=== PATIENT | female | born 1955 | race Caucasian/White ===

== ENCOUNTER → 2017-01-30 | Outpatient (CLI) | payer BC ==
[~2017-01-30] MED LIST: AMPH10TA2 PO; B-COCAP2 PO; CALC-478 PO; CELE100C PO; CITA20TA9 PO; FSMD/70 PO; GABA-1218 PO; GABA1CAP4 PO; GLUC10007 PO; HYDR-3419 PO; META1TAB22 PO; MULTTAB58 PO; NRN/300 PO; PREDPOW63 PO; PROB1TAB16 PO; TRAM-10 PO
--- NOTE | 2017-01-30 15:14 | DIAGNOSTIC IMAGING REPORT ---
CHEST 2 VIEWS ROUTINE CLINICAL HISTORY: Cough. Pneumonia. COMPARISON STUDY: Chest radiograph 11/18/2014. FINDINGS: Note is made of moderate to severe S-shaped scoliosis of the thoracolumbar spine. There is no pneumothorax or pleural effusion. There is no evidence of pulmonary edema. Nipple shadow projects of the right lower lung. There is a calcified left upper lobe nodule. This is unchanged. Cardiomediastinal silhouette is normal. Pulmonary vascularity is normal. IMPRESSION: No acute cardiopulmonary findings. Electronically signed by: Darius Witt M.D. 01/30/2017 3:13 PM Dictated Date/Time: 01/30/2017 3:12 PM
== END | disposition home or self-care (01) ==
LOC: C.RAD1850 14:45
PROVIDERS: ATTEND Family Medicine
DX: J18.9 Pneumonia, unspecified organism (principal)

== ENCOUNTER → 2017-02-23 | Outpatient (CLI) | payer BC ==
[~2017-02-23] MED LIST changes: -GABA-1218 PO; +GABA300C19 PO
== END | disposition home or self-care (01) ==
LOC: C.MAMM 10:08
PROVIDERS: ATTEND Internal Medicine Rheumatology
DX: M81.0 Age-related osteoporosis without current pathological fracture (principal); M85.88 Other specified disorders of bone density and structure, other site; M85.832 Other specified disorders of bone density and structure, left forearm; M85.851 Other specified disorders of bone density and structure, right thigh; M85.852 Other specified disorders of bone density and structure, left thigh

== ENCOUNTER → 2017-06-21 | Outpatient (CLI) | payer BC ==
[2017-06-21 12:10] LABS: BASO % 1.1 %; BASO ABS # 0.04 K/uL (0-0.2); COMPLETE YES; HEMATOCRIT 37.5 % (37-47); LYMPH % 38.6 %; MEAN CELL VOLUME 89.3 fL (80-100); MEAN CORPUSCULAR HEMOGLOBIN 29.3 pg (25-34); MEAN CORPUSCULAR HGB CONC 32.8 g/dl (32-36); MEAN PLATELET VOLUME 8.6 fL (7.4-10.4); MONO % 8.3 %; PLATELET COUNT 264 K/uL (130-400); WHITE BLOOD COUNT 3.63 K/uL (4.8-10.8)
[2017-06-21 13:18] LABS: BLOOD UREA NITROGEN 15 mg/dl (7-18); BUN/CREATININE RATIO 21.7 (10-20); CHLORIDE 106 mmol/L (98-107); CREATININE 0.67 mg/dl (0.60-1.20); GLUCOSE 85 mg/dl (70-99); POTASSIUM 4.2 mmol/L (3.5-5.1); SODIUM 140 mmol/L (136-145)
[2017-06-21 13:19] LABS: ALT/SGPT 23 U/L (12-78); CALCIUM 9.3 mg/dl (8.5-10.1); CARBON DIOXIDE 28 mmol/L (21-32)
[2017-06-21 13:31] LABS: ALB/GLOB RATIO 1.2 (0.9-2); ALKALINE PHOSPHATASE 66 U/L (45-117); AST/SGOT 20 U/L (15-37); IMMUNOGLOBULN A 98.5 mg/dL (70-400); IMMUNOGLOBULN M 85.5 mg/dL (40-230)
== END | disposition home or self-care (01) ==
LOC: C.LAB1850 10:43
PROVIDERS: ATTEND Internal Medicine Pulmonary Disease
DX: R91.1 Solitary pulmonary nodule (principal)

== ENCOUNTER → 2017-11-29 | Outpatient (CLI) | payer BC ==
[~2017-11-29] MED LIST changes: +GABA-1218 PO; +GABA-1219 PO; -GABA1CAP4 PO; -GABA300C19 PO
--- NOTE | 2017-11-30 14:41 | MAMMOGRAPHY REPORT ---
BILATERAL DIGITAL SCREENING MAMMOGRAM TOMOSYNTHESIS WITH CAD: 11/29/2017 CLINICAL HISTORY: Routine screening. TECHNIQUE: Breast tomosynthesis in addition to standard 2D mammography was performed. Current study was also evaluated with a Computer Aided Detection (CAD) system. COMPARISON: Comparison is made to exams dated: 08/17/2016 mammogram, 08/14/2015 mammogram, 4 mammogram, 08/08/2013 mammogram, 08/02/2012 mammogram, and 08/01/2011 mammogram - [facility]. BREAST COMPOSITION: The tissue of both breasts is heterogeneously dense, which may obscure small mas ses. FINDINGS: A linear scar marker overlies the lateral left breast. No suspicious mass, architectural d istortion or cluster of microcalcifications is seen. IMPRESSION: ACR BI-RADS CATEGORY 1: NEGATIVE There is no mammographic evidence of malignancy. A 1 year screening mammogram is recommended. The pa tient will receive written notification of the results. Approximately 10% of breast cancers are not detected with mammography. A negative mammographic report should not delay biopsy if a clinically suggestive mass is present. Dulce Acevedo M.D. ay/:11/29/2017 17:11:29 Roller Print Tender: Saroj LEON(Saumya)(Zahida), [facility] letter sent: Normal 1/2 BI-RADS Code: ACR BI-RADS Category 1: Negative
== END | disposition home or self-care (01) ==
LOC: C.MAMM 16:33
PROVIDERS: ATTEND Physician Assistant
DX: Z12.31 Encounter for screening mammogram for malignant neoplasm of breast (principal)

== ENCOUNTER 2020-03-22 14:29 | Observation (INO) ==
--- NOTE | 2020-03-22 14:53 | Emergency Department Note ---
History of Present Illness General Chief complaint: Cardiac Assessment Time Seen by Provider: 03/22/20 14:33 Source: patient Mode of arrival: EMS Limitations: no limitations History of Present Illness Provider complaint: Chest pain Onset (ago): hour(s) Location: chest Radiation: neck Severity: moderate Pain Consistency: + now resolved Quality: + other (Heaviness) Relieved By: + none Associated symptoms: + cough (Dry cough), + diaphoresis and + shortness of breath; no fever/chills and no nausea/vomiting This is a 64-year-old female presents with chest discomfort starting at approximately 1:30 PM today. The patient was not doing anything in particular other than trying to get ready to take her dogs out. She then developed some cramping pain in her upper abdomen. She sat down and developed chest heaviness across her entire chest rating into her neck. She was diaphoretic and short of breath. Her symptoms lasted about 10 to 20 minutes. They resolve spontaneously. When EMS arrived she did not have any symptoms. She was given 324 mg of aspirin p.o. She denies any recent fever, known exposure to COVID-19, vomiting, diarrhea or body aches. She does state that she had a very slight dry cough earlier today. She does have a COVID 19 test pending from but this was only because she is having hip surgery and not because she had symptoms. Home Medications Home Medications Medication Instructions Recorded Confirmed Type alendronate 70 mg PO WK 12/18/18 03/22/20 History cholecalciferol (vitamin D3) 1,000 unit PO DAILY 12/18/18 03/22/20 History [Vitamin D3] dextroamphetamine-amphetamine 10 mg PO TID 12/18/18 03/22/20 History [Adderall] gabapentin 900 mg PO TID 12/18/18 03/22/20 History hydrocodone-acetaminophen 1 - 2 tab PO BID PRN 12/18/18 03/22/20 History lorazepam 1 mg PO DAILY PRN 12/18/18 03/22/20 History magnesium oxide 400 mg PO DIRECTED 12/18/18 03/22/20 History metaxalone 800 mg PO BID PRN 12/18/18 03/22/20 History multivitamin [Multiple Vitamins] 1 tab PO DAILY 12/18/18 03/22/20 History vitamin B complex 1 cap PO DAILY 12/18/18 03/22/20 History zinc sulfate [Zinc-15] 66 mg PO DIRECTED 12/18/18 03/22/20 History budesonide 3 mg 6 mg PO QAM 07/19/19 03/22/20 History capsule,delayed,extended release diphenoxylate-atropine 2.5 1 tab PO BID PRN 07/19/19 03/22/20 History mg-0.025 mg tablet celecoxib [Celebrex] 100 mg PO DIRECTED 02/26/20 03/22/20 History duloxetine [Cymbalta] 60 mg PO QAM 02/26/20 03/22/20 History meclizine 25 mg PO TID PRN 03/22/20 03/22/20 History Allergies Allergy/AdvReac Type Severity Reaction Status Date / Time baclofen Allergy Unknown Hypotension Verified 03/22/20 16:06 titanium AdvReac Unknown "AUTO Verified 03/22/20 16:06 IMMUNE" REACTION , LICHEN PLANUS Past Med/Surg History Medical History ADHD Hay fever EXPERIENCES CHANGE OF TASTE DUE MEDICATIONS (CHRONIC ISSUE/STABLE) History of melanoma AND HX SQUAMOUS CELL - REMOVED , HX MOHS/FOLLOWS DERM RECOMMENDED 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 Lichen planus TO LOWER EXTREMITIES- CHRONIC Lung cyst CALCIFIED LUNG CYST, LEFT LUNG - CHRONIC - NO CHANGES Lymphocytic colitis Scoliosis SIGNIFICANT Spinal stenosis Vestibular schwannoma S/P GAMMA KNIFE SURGERY 2019- BELIEVES IMPROVING Surgical History History of section History of colonoscopy History of gynecologic surgery ECTOPIC History of left breast biopsy History of neck surgery MILD LIMITATIONS SIDE TO SIDE MOVEMENT MILD LIMITATION WHEN LOOKING DOWN History of oral surgery SEVERAL TEETH REMOVED, ROOT CANAL WITH ANESTHESIA History of surgery GAMMA KNIFE [place] teeth removed Family History Mother Family history of CREST syndrome Father Family history of diabetes mellitus (DM) Son Family history of diabetes mellitus (DM) Social History Smoking Status: Former smoker Smoking End Date: 1989; Second Hand Exposure: No; Tobacco Cessation Education Requested by Patient: No Hx Alcohol Use: Yes Alcohol type: wine and hard liquor Hx Substance Use: No Preferred Language: Faroese Communication Ability: Effective Senior Application Programmer Required: No Beliefs That Will Affect Care: None Current Living Situation: Alone Current Living Situation Comment: son intermittently current occupational status: employed Other Information That Helps Us Care for You: No Feels Safe at Home: Yes Safety Concerns: Feels Safe At This Time Review of Systems See HPI for pertinent positives & negatives. and A total of 10 systems reviewed and were otherwise negative Physical Exam Vital Signs Vital Signs - 24 hr 03/22/20 14:52 03/22/20 15:41 03/22/20 16:00 Temperature 36.6 C Temperature Source Oral Pulse Rate 72 69 Pulse Rate [Apical] 72 Pulse Rate from SpO2 Sensor 70 Respiratory Rate 18 18 16 Blood Pressure 180/91 H 147/115 H Blood Pressure [Right Arm] 142/109 H Blood Pressure Mean 120 127 Blood Pressure Mean [Right Arm] 120 Pulse Oximetry 97 98 96 Oxygen Delivery Method Room Air Room Air Sepsis Recent Fever Within 48 Hours No Sepsis New/Unexplained Change in Mental Status No Sepsis Action Taken by Nursing No Action Required 03/22/20 16:27 03/22/20 16:31 03/22/20 17:00 Temperature Temperature Source Pulse Rate 66 64 73 Pulse Rate [Apical] Pulse Rate from SpO2 Sensor 65 65 73 Respiratory Rate 11 L 11 L 14 Blood Pressure 147/115 H 170/111 H 182/106 H Blood Pressure [Right Arm] Blood Pressure Mean 127 138 119 Blood Pressure Mean [Right Arm] Pulse Oximetry 96 96 97 Oxygen Delivery Method Sepsis Recent Fever Within 48 Hours Sepsis New/Unexplained Change in Mental Status Sepsis Action Taken by Nursing Constitutional: Vital signs reviewed. Eyes: Pupils are equal round reactive to light. Conjunctiva are noninjected. ENT: Pharynx is clear without erythema or exudate. Mucous membranes are moist. Neck supple without meningeal signs. Respiratory: Clear to auscultation bilaterally. Breath sounds are equal bilaterally. Cardiovascular: Regular rate and rhythm. No rubs or gallops. GI: Soft, nondistended and nontender. Bowel sounds are present. Musculoskeletal: No peripheral edema. No lower extremity tenderness. Integumentary: No cyanosis. or jaundice. Neurological: The patient is awake and alert. No focal deficits. Psychiatric: Normal affect. Not anxious appearing. Medical Decision Making Differential Diagnosis Unstable angina, [place], GERD, cholelithiasis, pancreatitis Medical Records Attestation: I reviewed the patient's medical records. I did perform a limited focused review of portions of the patient's old chart on the electronic medical record. The patient has had no recent pertinent visits to this hospital. She did see orthopedics for preop assessment. Home Medications Current Medication List: was personally reviewed by me Laboratory Data Attestation: I reviewed the patient's lab results. Result diagrams: 03/22/20 14:50 03/22/20 14:50 Lab Results 03/22/20 03/22/20 03/22/20 Range/Units 14:50 14:50 14:50 WBC 5.89 (4.8-10.8) K/uL RBC 4.37 (4.2-5.4) M/uL Hgb 13.2 (12.0-16.0) g/dL Hct 39.8 (37-47) % MCV 91.1 (80-100) fL MCH 30.2 (25-34) pg MCHC 33.2 (32-36) g/dL RDW Std Deviation 44.7 (36.4-46.3) fL RDW Coeff of Karena 13.4 (11.5-14.5) % Plt Count 304 (130-400) K/uL MPV 8.3 (7.4-10.4) fL Immature Gran % (Auto) 0.2 % Neut % (Auto) 58.7 % Lymph % (Auto) 26.8 % [place] % (Auto) 11.4 % Eos % (Auto) 2.2 % Baso % (Auto) 0.7 % Neut # (Auto) 3.46 (1.4-6.5) K/uL Lymph # (Auto) 1.58 (1.2-3.4) K/uL [place] # (Auto) 0.67 H (0.11-0.59) K/uL Eos # (Auto) 0.13 (0-0.5) K/uL Baso # (Auto) 0.04 (0-0.2) K/uL Immature Gran # (Auto) 0.01 (0.00-0.02) K/uL ESR (0-21) mm/hr PT 10.8 (9.0-12.0) Seconds INR 1.0 (0.9-1.1) APTT 29.3 (21.0-31.0) Seconds PTT Ratio 1.1 Sodium 140 (136-145) mmol/L Potassium 3.7 (3.5-5.1) mmol/L Chloride 104 (98-107) mmol/L Carbon Dioxide 28 (21-32) mmol/L Anion Gap 8.0 (3-11) BUN 16 (7-18) mg/dl Creatinine 0.69 (0.6-1.2) mg/dl Est Cr Clr Drug Dosing 80.7 ml/min Est GFR ( Amer) 107.4 Est GFR (Non-Af Amer) 92.6 BUN/Creatinine Ratio 22.6 H (10-20) Glucose 93 (70-99) mg/dl Calcium 8.9 (8.5-10.1) mg/dl Total Bilirubin 0.6 (0.2-1) mg/dl AST 25 (15-37) U/L ALT 28 (12-78) U/L Alkaline Phosphatase 85 (45-117) U/L Troponin I < 0.015 (0-0.045) ng/ml Total Protein 7.6 (6.4-8.2) gm/dl Albumin 3.9 (3.4-5.0) gm/dl Globulin 3.7 (2.5-4.0) gm/dl Albumin/Globulin Ratio 1.1 (0.9-2) Lipase 152 (73-393) U/L Specimen Hemolysis 03/22/20 Range/Units 14:50 WBC (4.8-10.8) K/uL RBC (4.2-5.4) M/uL Hgb (12.0-16.0) g/dL Hct (37-47) % MCV (80-100) fL MCH (25-34) pg MCHC (32-36) g/dL RDW Std Deviation (36.4-46.3) fL RDW Coeff of Karena (11.5-14.5) % Plt Count (130-400) K/uL MPV (7.4-10.4) fL Immature Gran % (Auto) % Neut % (Auto) % Lymph % (Auto) % [place] % (Auto) % Eos % (Auto) % Baso % (Auto) % Neut # (Auto) (1.4-6.5) K/uL Lymph # (Auto) (1.2-3.4) K/uL [place] # (Auto) (0.11-0.59) K/uL Eos # (Auto) (0-0.5) K/uL Baso # (Auto) (0-0.2) K/uL Immature Gran # (Auto) (0.00-0.02) K/uL ESR 10 (0-21) mm/hr PT (9.0-12.0) Seconds INR (0.9-1.1) APTT (21.0-31.0) Seconds PTT Ratio Sodium (136-145) mmol/L Potassium (3.5-5.1) mmol/L Chloride (98-107) mmol/L Carbon Dioxide (21-32) mmol/L Anion Gap (3-11) BUN (7-18) mg/dl Creatinine (0.6-1.2) mg/dl Est Cr Clr Drug Dosing ml/min Est GFR ( Amer) Est GFR (Non-Af Amer) BUN/Creatinine Ratio (10-20) Glucose (70-99) mg/dl Calcium (8.5-10.1) mg/dl Total Bilirubin (0.2-1) mg/dl AST (15-37) U/L ALT (12-78) U/L Alkaline Phosphatase (45-117) U/L Troponin I (0-0.045) ng/ml Total Protein (6.4-8.2) gm/dl Albumin (3.4-5.0) gm/dl Globulin (2.5-4.0) gm/dl Albumin/Globulin Ratio (0.9-2) Lipase (73-393) U/L Specimen Hemolysis Imaging Data Radiologist's Impression: SINGLE VIEW CHEST CLINICAL HISTORY: Atypical chest pain. FINDINGS: An AP, portable, upright chest radiograph is compared to study dated 03/04/2020. The cardiomediastinal silhouette is unremarkable. A calcified granuloma seen in the left upper lobe. The lungs and pleural spaces are otherwise clear. No pneumothorax is seen. The skeletal structures are osteopenic. The bony thorax is grossly intact. Fusion hardware is noted in the lower cervical spine. Degenerative change and moderate scoliosis is seen in the thoracic spine. IMPRESSION: No active disease in the chest. ACT 112: Negative or not required by law. Electronically signed by: Rogers Paul M.D. 03/22/2020 3:16 PM Dictated: 03/22/20 1515 Transcribed: 03/22/20 1515 ECG Data Attestation: I personally reviewed and interpreted this ECG as follows: Indication: + chest pain Rate (beats per minute): 78 Rhythm: + normal sinus ECG Intervals/blocks: + Normal QRS ECG ST segments: no ST elevation ECG Findings: + LVH; no PVCs Blood Pressure Blood Pressure Findings: Elevated blood pressure Blood Pressure Disposition: further management by hospitalist MDM Narrative I did evaluate the patient as noted above. IV access was established. I did place an order for continuous cardiac monitoring. The monitor showed normal sinus rhythm with a rate of 76. I did order and personally review the patient's 12-lead EKG as described above. She has no acute ischemic changes. I did order and personally reviewed the images of the patient's chest x-ray as described above. There is no evidence of acute cardiopulmonary process. I did order and review the patient's blood work as noted in the electronic medical record. CBC is unremarkable without leukocytosis or anemia. Electrolytes are unremarkable. Troponin is negative. I did reevaluate the patient. I did discuss the test results with her. She is asymptomatic. I did recommend hospitalization for further evaluation of her chest pain and repeat cardiac biomarkers. I did discuss case with the hospitalist and case assembler. Impression & Plan Acute chest pain Discharge Plan Visit Data *Final* Discharge Date/Time: 03/22/20 18:04 Chief Complaint: Cardiac Assessment ED Provider: Chinedu Sanchez Discharge Problem: Acute chest pain Patient Disposition: Admitted As Inpatient Discharge Instructions Interventions: ED Discharge Assessment Last Done: 03/22/20 18:04
[2020-03-22 14:58] LABS: Basophils # (auto) 0.04 K/uL (0-0.2); Basophils % (auto) 0.7 %; Eosinophils # (auto) 0.13 K/uL (0-0.5); Eosinophils % (auto) 2.2 %; Hematocrit (blood only) 39.8 % (37-47); Hemoglobin 13.2 g/dL (12.0-16.0); Immature Granulocytes # (auto) 0.01 K/uL (0.00-0.02); Immature Granulocytes % (auto) 0.2 %; Lymphocytes # (auto) 1.58 K/uL (1.2-3.4); Lymphocytes % (auto) 26.8 %; Mean Corpuscular Hemoglobin 30.2 pg (25-34); Mean Corpuscular Hgb Conc 33.2 g/dL (32-36); Mean Corpuscular Volume 91.1 fL (80-100); Mean Platelet Volume 8.3 fL (7.4-10.4); Monocytes # (auto) 0.67 K/uL (0.11-0.59); Monocytes % (auto) 11.4 %; Neutrophils # (auto) 3.46 K/uL (1.4-6.5); Neutrophils % (auto) 58.7 %; Platelet Count 304 K/uL (130-400); RDW Coefficient of Variation 13.4 % (11.5-14.5); RDW Standard Deviation 44.7 fL (36.4-46.3); Red Blood Count 4.37 M/uL (4.2-5.4); White Blood Count 5.89 K/uL (4.8-10.8)
[2020-03-22 15:10] LABS: Partial Thromboplastin Ratio 1.1; Partial Thromboplastin Time 29.3 Seconds (21.0-31.0); Prothrombin Time 10.8 Seconds (9.0-12.0)
--- NOTE | 2020-03-22 15:18 | XRay Report ---
SINGLE VIEW CHEST CLINICAL HISTORY: Atypical chest pain. FINDINGS: An AP, portable, upright chest radiograph is compared to study dated 03/04/2020. The cardiome diastinal silhouette is unremarkable. A calcified granuloma seen in the left upper lobe. The lungs an d pleural spaces are otherwise clear. No pneumothorax is seen. The skeletal structures are osteopenic . The bony thorax is grossly intact. Fusion hardware is noted in the lower cervical spine. Degenerati ve change and moderate scoliosis is seen in the thoracic spine. IMPRESSION: No active disease in the chest. ACT 112: Negative or not required by law. Electronically signed by: Rogers Paul M.D. 03/22/2020 3:16 PM
[2020-03-22 15:24] LABS: Alanine Aminotransferase 28 U/L (12-78); Albumin Globulin Ratio 1.1 (0.9-2); Albumin Level 3.9 gm/dl (3.4-5.0); Alkaline Phosphatase 85 U/L (45-117); Aspartate Aminotransferase 25 U/L (15-37); BUN Creatinine Ratio 22.6 (10-20); Bilirubin,Total 0.6 mg/dl (0.2-1); Blood Urea Nitrogen 16 mg/dl (7-18); Calcium 8.9 mg/dl (8.5-10.1); Carbon Dioxide 28 mmol/L (21-32); Chloride 104 mmol/L (98-107); Creatinine Clr Calc Pharmacy 80.7 ml/min; Est GFR (African American) 107.4; Est GFR (Non-African American) 92.6; Globulin 3.7 gm/dl (2.5-4.0); Glucose 93 mg/dl (70-99); Lipase 152 U/L (73-393); Potassium 3.7 mmol/L (3.5-5.1); Sodium 140 mmol/L (136-145); Total Protein 7.6 gm/dl (6.4-8.2); Troponin I < 0.015 ng/ml (0-0.045)
--- NOTE | 2020-03-22 16:38 | History & Physical Report ---
Date of Service March 22, 2020 Assessment & Plan (1) Atypical chest pain: Unlikely ACS but difficult to exclude in patient with multiple over complaints. Will trend troponin overnight and defer decision on stress testing +/- TTE to physician in AM if troponin negative. Given upcoming left THR may wish to perform stress testing as inpatient. Most likely esophagitis/gastritis secondary to Fosamax use -> start pantoprazole. Recommend given esophageal motility issues she discusses workup for CREST with her PCP (pt mother had this although the patient has no sclerodactyly at present) and possible need to d/c her Fosamax for IV bisphosphonates. Suspect her esophageal dysmotility is due mainly to her prior neck surgeries therefore leading to less cervical extension. No change in serial EKGs. Troponins x2 WNL. Start pantoprazole 40mg BID (2) Left hip pain: Awaiting left total hip replacement. (3) Lymphocytic colitis: Continue budesonide. (4) Elevated blood pressure reading: Hold Adderall. Noted BP in office elevated as well. Since ACS not ruled out at this stage will treat with 1 inch nitro paste. (5) Scoliosis: Severe with radicular leg pains. Continue gabapentin 900 mg TID, Cymbalta 60mg PO QAM. Consider B12 levels as outpatient. Rx muscle spasms with metolazone. (6) Spinal stenosis: (7) ADHD: Hold Adderall use given hypertension and possible ACS. Admission and Anticipated Discharge Date Admission Date: 03/22/2020 Anticipated date of discharge: 03/23/20 History of Present Illness Chief Complaint: Abdominal and chest pain Primary Care Provider: DO Tj Perales Jasmin is a 64 year old female who presents to the ER with sudden onset severe chest pain at rest. Chest pain occurred around 1-1:30pm today for around 15 minutes. Initially her symptoms started with severe leg cramps on getting up this morning. These were excruciating but she managed to walk through them. Cramps are not unusual for her but the severity of these was worse than normal. She usually gets her cramps first thing in the morning on waking up. After this she had breakfast with toast. She took her medication (including foasmax) and started having stomach cramps at the same time of shortly after this. These are unsual for her. Occurred in ther upper abdomen. Severity 10/10. Eventually relieved enough she managed to walk downstairs but were so severe she had to lie down. On lying down and trying to relax her pain changed to more heaviness in chest and tightness in her neck with radiation to both arms. Associated diaphoresis and shortness of breath. Severity 7/10 at worse, currently 0/10. She has never had a pain like this before. Taking fosamax for many years without an issues although she did just restart back on this around 2 months ago. She does note problems swallowing with occasional dysphagia requiring her to extend her neck to swallow. She called EMS and was brought to the ER via EMS. In the ER she was referred to the medicine team Risk factors: Family history with CAD in ther father and diet Stopped smoking 30 years ago. Smoked for around 20 years - (1 pack/day average) No diabetes. She does note her BP has been elevated recently in the office, although this was just at her last visit. Allergies Allergy/AdvReac Type Severity Reaction Status Date / Time baclofen Allergy Unknown Hypotension Verified 03/22/20 16:06 titanium AdvReac Unknown "AUTO Verified 03/22/20 16:06 IMMUNE" REACTION , LICHEN PLANUS Home Medications Home Medications Medication Instructions Recorded Confirmed Type alendronate 70 mg PO WK 12/18/18 03/22/20 History cholecalciferol (vitamin D3) 1,000 unit PO DAILY 12/18/18 03/22/20 History [Vitamin D3] dextroamphetamine-amphetamine 10 mg PO TID 12/18/18 03/22/20 History [Adderall] gabapentin 900 mg PO TID 12/18/18 03/22/20 History hydrocodone-acetaminophen 1 - 2 tab PO BID PRN 12/18/18 03/22/20 History lorazepam 1 mg PO DAILY PRN 12/18/18 03/22/20 History magnesium oxide 400 mg PO DIRECTED 12/18/18 03/22/20 History metaxalone 800 mg PO BID PRN 12/18/18 03/22/20 History multivitamin [Multiple Vitamins] 1 tab PO DAILY 12/18/18 03/22/20 History vitamin B complex 1 cap PO DAILY 12/18/18 03/22/20 History zinc sulfate [Zinc-15] 66 mg PO DIRECTED 12/18/18 03/22/20 History budesonide 3 mg 6 mg PO QAM 07/19/19 03/22/20 History capsule,delayed,extended release diphenoxylate-atropine 2.5 1 tab PO BID PRN 07/19/19 03/22/20 History mg-0.025 mg tablet celecoxib [Celebrex] 100 mg PO DIRECTED 02/26/20 03/22/20 History duloxetine [Cymbalta] 60 mg PO QAM 02/26/20 03/22/20 History meclizine 25 mg PO TID PRN 03/22/20 03/22/20 History Past Med/Surg History Medical History ADHD Hay fever EXPERIENCES CHANGE OF TASTE DUE MEDICATIONS (CHRONIC ISSUE/STABLE) History of melanoma AND HX SQUAMOUS CELL - REMOVED , HX MOHS/FOLLOWS DERM RECOMMENDED 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 Lichen planus TO LOWER EXTREMITIES- CHRONIC Lung cyst CALCIFIED LUNG CYST, LEFT LUNG - CHRONIC - NO CHANGES Lymphocytic colitis Scoliosis SIGNIFICANT Spinal stenosis Vestibular schwannoma S/P GAMMA KNIFE SURGERY 2018- BELIEVES IMPROVING Surgical History History of section History of colonoscopy History of gynecologic surgery ECTOPIC History of left breast biopsy History of neck surgery MILD LIMITATIONS SIDE TO SIDE MOVEMENT MILD LIMITATION WHEN LOOKING DOWN History of oral surgery SEVERAL TEETH REMOVED, ROOT CANAL WITH ANESTHESIA History of surgery GAMMA KNIFE [place] teeth removed Family History Mother Family history of CREST syndrome Father Family history of diabetes mellitus (DM) Son Family history of diabetes mellitus (DM) Social History Smoking Status: Former smoker Smoking End Date: 1989; Second Hand Exposure: No; Tobacco Cessation Education Requested by Patient: No Hx Alcohol Use: Yes Alcohol type: wine and hard liquor Hx Substance Use: No Preferred Language: Japanese Communication Ability: Effective Chute Operator Required: No Beliefs That Will Affect Care: None Current Living Situation: Alone Current Living Situation Comment: son intermittently current occupational status: employed Other Information That Helps Us Care for You: No Feels Safe at Home: Yes Safety Concerns: Feels Safe At This Time Review of Systems Review of Systems: All systems reviewed & are unremarkable except as noted in HPI & below Physical Exam Constitutional: well developed and well nourished; no acute distress Eyes: + anicteric sclerae; normal pupil size ENMT: external ear and nose normal, oropharynx normal Ears: + hearing impairment (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) Neck: trachea midline, no thyromegaly Respiratory: normal respiratory effort, lungs clear to auscultation Cardiovascular: RRR, no murmur, no edema Gastrointestinal (Abdomen): normal bowel sounds, soft, nontender, no hepatos plenomegaly Musculoskeletal: no cyanosis or clubbing, extremities motor strength 5/5 Spine: + scoliosis (severe) Skin: no rashes, warm and dry Neurologic: moves all extremities and awake; not confused Psychiatric: A+Ox3, euthymic affect Lymphatic: no cervical or axillary lymphadenopathy Results & Data Results & Data ([facility]) Vital Signs (Past 12 Hours) Vital Signs Temp Pulse Pulse Resp BP BP Pulse Ox 03/22/20 15:41 72 18 142/109 H 98 03/22/20 14:52 36.6 C 72 18 180/91 H 97 Diagnostic Findings SINGLE VIEW CHEST IMPRESSION: No active disease in the chest. ECG Indication: chest pain Rate (beats per minute): 78 Rhythm: normal sinus Comparison ECG Date: from (03/04/2020) Change: no significant change Code Status & VTE Plan Code Status DNR in setting of cardiac arrest, ok for intubation and ventilation VTE Prophylaxis Plan VTE Prophylaxis will be ordered: No Reason for no VTE drug order: Treatment not indicated Reason for no VTE mechanical prophylaxis: Treatment not indicated PG Care Time/CCT Total # of Minutes Spent Total Time Spent with Patient: Total time spent is greater than 50% in coordination of care (as documented) at patient's floor/unit and/or counseling patient: Coding Level of Care Code 20317 OBS Care - Level 3 Diagnoses Atypical chest pain R07.89 Left hip pain M25.552 Lymphocytic colitis K52.832 Elevated blood pressure reading R03.0 Scoliosis M41.9 Spinal stenosis M48.00 ADHD F90.9
[2020-03-22] MEDS ORDERED: HYDROCODONE/ACETAMINOPHEN 10/325 TAB PO PRN (18:30)
[2020-03-22] MEDS ORDERED: LORazepam 1 MG TAB PO PRN (18:30)
[2020-03-22 18:50] LABS: Magnesium 2.3 mg/dl (1.8-2.4); Troponin I < 0.015 ng/ml (0-0.045)
[2020-03-22] MEDS ORDERED: METAXALONE 800 MG TABLET PO PRN (19:07)
[2020-03-22] MEDS ORDERED: ZINC SULFATE 66 MG PO SCH (19:15)
[2020-03-22] MEDS ORDERED: PANTOprazole 40 MG TAB PO STA (19:46)
[2020-03-22] MEDS ORDERED: MECLIZINE HCL 25 MG TAB PO PRN (20:20)
[2020-03-22] MEDS: NITROGLYCERIN 2% OINTMENT 30GM TUBE EXT SCH (20:46)
[2020-03-22] MEDS: GABAPENTIN 300 MG CAP PO SCH (20:47)
[2020-03-23] MEDS: NITROGLYCERIN 2% OINTMENT 30GM TUBE EXT SCH ×3 (00:47→12:44)
[2020-03-23] MEDS ORDERED: ACETAMINOPHEN 325 MG TAB PO PRN (05:28)
[2020-03-23 06:50] LABS: Basophils # (auto) 0.03 K/uL (0-0.2); Basophils % (auto) 0.6 %; Eosinophils # (auto) 0.18 K/uL (0-0.5); Eosinophils % (auto) 3.8 %; Hematocrit (blood only) 37.6 % (37-47); Hemoglobin 12.6 g/dL (12.0-16.0); Immature Granulocytes # (auto) 0.01 K/uL (0.00-0.02); Immature Granulocytes % (auto) 0.2 %; Lymphocytes # (auto) 1.25 K/uL (1.2-3.4); Lymphocytes % (auto) 26.5 %; Mean Corpuscular Hemoglobin 30.4 pg (25-34); Mean Corpuscular Hgb Conc 33.5 g/dL (32-36); Mean Corpuscular Volume 90.8 fL (80-100); Mean Platelet Volume 8.5 fL (7.4-10.4); Monocytes # (auto) 0.42 K/uL (0.11-0.59); Monocytes % (auto) 8.9 %; Neutrophils # (auto) 2.83 K/uL (1.4-6.5); Platelet Count 263 K/uL (130-400); RDW Coefficient of Variation 13.5 % (11.5-14.5); RDW Standard Deviation 44.5 fL (36.4-46.3); Red Blood Count 4.14 M/uL (4.2-5.4); White Blood Count 4.72 K/uL (4.8-10.8)
[2020-03-23 07:21] LABS: BUN Creatinine Ratio 21.7 (10-20); Blood Urea Nitrogen 13 mg/dl (7-18); Calcium 8.6 mg/dl (8.5-10.1); Carbon Dioxide 27 mmol/L (21-32); Chloride 107 mmol/L (98-107); Creatinine Clr Calc Pharmacy 80.2 ml/min; Est GFR (African American) 111.2; Glucose 108 mg/dl (70-99); Potassium 3.3 mmol/L (3.5-5.1); Sodium 141 mmol/L (136-145)
[2020-03-23 07:26] LABS: Troponin I < 0.015 ng/ml (0-0.045)
[2020-03-23] MEDS ORDERED: POTASSIUM CHLORIDE 20 MEQ TABCR PO ONE (08:15)
[2020-03-23] MEDS: BUDESONIDE EC 3 MG CAP PO SCH (08:17)
[2020-03-23] MEDS: PANTOprazole 40 MG TAB PO SCH ×2 (08:18→19:45)
[2020-03-23] MEDS: VITAMIN B COMPLEX TAB PO SCH (08:18)
[2020-03-23] MEDS: MULTIVITAMIN TAB PO SCH (08:18)
[2020-03-23] MEDS: GABAPENTIN 300 MG CAP PO SCH ×3 (08:19→19:45)
[2020-03-23] MEDS: DULOXETINE HCL 60 MG CAP PO SCH (08:21)
[2020-03-23] MEDS: CHOLECALCIFEROL 1,000 UNITS 25 MCG TAB PO SCH (08:22)
[2020-03-23] MEDS ORDERED: METOPROLOL TARTRATE 1 MG/ML VIAL IV ONE (09:08)
[2020-03-23] MEDS ORDERED: DOBUTamine HCL 12.5 MG/ML 20 ML VIAL IV ONE (09:08)
[2020-03-23] MEDS ORDERED: ATROPINE SULFATE 0.1 MG/ML 10ML SYR IV ONE (09:08)
[2020-03-23] MEDS ORDERED: COUGH DROP (SUGAR FREE) LOZ 24 LOZ/1 BOX BUCCAL ONE (10:44)
--- NOTE | 2020-03-23 11:44 | XCELERA ---
[id number]
--- NOTE | 2020-03-23 16:20 | Cardiology Consultation ---
Date of Consultation March 23, 2020 Assessment & Plan (1) Acute chest pain: Her chest discomfort is quite worrisome, the character of it is quite suggestive of coronary artery disease. The troponins were negative however the symptoms were brief enough that they could still indicate coronary disease. Additionally she developed hypotension and chest discomfort during the dobutamine infusion, which could indicate coronary disease despite a negative stress test. The stress test could be a false negative or negative because she did not reach her target heart rate. She has hip surgery scheduled for 4 days from now and I do not feel confident that we can say she does not have significant coronary artery disease based on the symptoms. I would recommend at least a diagnostic catheterization. I does discussed that with her, she is agreeable and we will plan on doing it tomorrow. History of Present Illness Reason for Consultation: Chest pain Attending Physician: Dandre Tiwari History of Present Illness This is a 64-year-old woman who has no significant cardiac history but recently developed chest discomfort. Just prior to admission she developed a crampy sensation in her abdomen, it felt like a muscle spasm to her but it was located in her upper abdomen, she points mostly to the left upper quadrant. This lasted perhaps 10 to 15 minutes, she laid down and developed some substernal chest pressure and discomfort with radiation to her neck and to both arms. She also had some tingling sensation in her arms. This probably lasted 5 to 10 minutes before it resolved. She also felt diaphoretic and little bit lightheaded. She came into the emergency room and has not had symptoms since. She does however noticed that she has had exertional fatigue more so over the last several months than before. She attributed this to hip problems she is having, she is actually scheduled for hip surgery Monday of this week. Evaluation so far included electrocardiography which shows no acute change, negative troponins and a dobutamine stress echo done this morning. During the stress test she developed substernal chest discomfort with radiation to her arm, she also was somewhat hypotensive perhaps from the dobutamine and she did not reach target heart rate. The test was not positive for ischemia, however without reaching target heart rate the results are equivocal. Allergies Allergy/AdvReac Type Severity Reaction Status Date / Time baclofen Allergy Unknown Hypotension Verified 03/22/20 16:06 titanium AdvReac Unknown "AUTO Verified 03/22/20 16:06 IMMUNE" REACTION , LICHEN PLANUS Home Medications Home Medications Medication Instructions Recorded Confirmed Type alendronate 70 mg PO WK 12/18/18 03/22/20 History cholecalciferol (vitamin D3) 1,000 unit PO DAILY 12/18/18 03/22/20 History [Vitamin D3] dextroamphetamine-amphetamine 10 mg PO TID 12/18/18 03/22/20 History [Adderall] gabapentin 900 mg PO TID 12/18/18 03/22/20 History hydrocodone-acetaminophen 1 - 2 tab PO BID PRN 12/18/18 03/22/20 History lorazepam 1 mg PO DAILY PRN 12/18/18 03/22/20 History magnesium oxide 400 mg PO DIRECTED 12/18/18 03/22/20 History metaxalone 800 mg PO BID PRN 12/18/18 03/22/20 History multivitamin [Multiple Vitamins] 1 tab PO DAILY 12/18/18 03/22/20 History vitamin B complex 1 cap PO DAILY 12/18/18 03/22/20 History zinc sulfate [Zinc-15] 66 mg PO DIRECTED 12/18/18 03/22/20 History budesonide 3 mg 6 mg PO QAM 07/19/19 03/22/20 History capsule,delayed,extended release diphenoxylate-atropine 2.5 1 tab PO BID PRN 07/19/19 03/22/20 History mg-0.025 mg tablet celecoxib [Celebrex] 100 mg PO DIRECTED 02/26/20 03/22/20 History duloxetine [Cymbalta] 60 mg PO QAM 02/26/20 03/22/20 History meclizine 25 mg PO TID PRN 03/22/20 03/22/20 History Patient History Medical History ADHD Hay fever EXPERIENCES CHANGE OF TASTE DUE MEDICATIONS (CHRONIC ISSUE/STABLE) History of melanoma AND HX SQUAMOUS CELL - REMOVED , HX MOHS/FOLLOWS DERM RECOMMENDED 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 Lichen planus TO LOWER EXTREMITIES- CHRONIC Lung cyst CALCIFIED LUNG CYST, LEFT LUNG - CHRONIC - NO CHANGES Lymphocytic colitis Scoliosis SIGNIFICANT Spinal stenosis Vestibular schwannoma S/P GAMMA KNIFE SURGERY 2019- BELIEVES IMPROVING Surgical History History of section History of colonoscopy History of gynecologic surgery ECTOPIC History of left breast biopsy History of neck surgery MILD LIMITATIONS SIDE TO SIDE MOVEMENT MILD LIMITATION WHEN LOOKING DOWN History of oral surgery SEVERAL TEETH REMOVED, ROOT CANAL WITH ANESTHESIA History of surgery GAMMA KNIFE [place] teeth removed Family History Mother Family history of CREST syndrome Father Family history of diabetes mellitus (DM) Son Family history of diabetes mellitus (DM) Social History Smoking Status: Former smoker Smoking End Date: 1989; Second Hand Exposure: No; Tobacco Cessation Education Requested by Patient: No Hx Alcohol Use: Yes Alcohol type: wine and hard liquor Hx Substance Use: No Preferred Language: Turkish Communication Ability: Effective Chaperon Required: No Beliefs That Will Affect Care: None Current Living Situation: Alone Current Living Situation Comment: son intermittently current occupational status: employed Other Information That Helps Us Care for You: No Feels Safe at Home: Yes Safety Concerns: Feels Safe At This Time Review of Systems Review of Systems: All systems reviewed & are unremarkable except as noted in HPI & below Physical Exam Physical Exam: Constitutional: Alert, cooperative and in no distress. HEENT: Unremarkable Neck: No jugular venous distention, carotid pulses are normal and equal bilaterally without bruits. Pulmonary: Clear to auscultation bilaterally. Cardiac: Regular rhythm with no murmur, gallop or rub. Abdomen: Soft, nontender with normal bowel sounds. Extremities: No edema. Distal pulses intact. Neurologic: No focal findings. Gait is steady. Skin: No rash, ecchymoses or petechiae. Results & Data ([facility]) Vital Signs (Past 12 Hours) Vital Signs Temp Pulse Pulse Resp BP Pulse Ox 03/23/20 15:20 36.7 C 64 19 152/94 H 98 03/23/20 11:55 37.2 C 61 18 155/87 H 98 03/23/20 08:00 36.7 C 63 67 20 151/97 H 97 Laboratory Results Cardiac Enzymes 03/22/20 03/23/20 03/23/20 Range/Units 18:12 00:24 06:20 Troponin I < 0.015 < 0.015 < 0.015 (0-0.045) ng/ml CBC 03/23/20 Range/Units 06:20 WBC 4.72 L (4.8-10.8) K/uL RBC 4.14 L (4.2-5.4) M/uL Hgb 12.6 (12.0-16.0) g/dL Hct 37.6 (37-47) % Plt Count 263 (130-400) K/uL Neut # (Auto) 2.83 (1.4-6.5) K/uL Lymph # (Auto) 1.25 (1.2-3.4) K/uL [place] # (Auto) 0.42 (0.11-0.59) K/uL Eos # (Auto) 0.18 (0-0.5) K/uL Baso # (Auto) 0.03 (0-0.2) K/uL Comprehensive Metabolic Panel 03/23/20 Range/Units 06:20 Sodium 141 (136-145) mmol/L Potassium 3.3 L (3.5-5.1) mmol/L Chloride 107 (98-107) mmol/L Carbon Dioxide 27 (21-32) mmol/L BUN 13 (7-18) mg/dl Creatinine 0.62 (0.6-1.2) mg/dl Glucose 108 H (70-99) mg/dl Calcium 8.6 (8.5-10.1) mg/dl Intake and Output 03/23/20 03/23/20 03/23/20 06:59 14:59 22:59 Intake Total 350 / 850 200 / 200 Output Total 700 / 1150 800 / 800 Balance -350 / -300 -600 / -600 Intake: Oral 350 / 850 200 / 200 Output: Urine 700 / 1150 800 / 800 Other: Weight 65.6 kg Diagnostic Findings Telemetry: Sinus rhythm, no significant ectopy Her electrocardiograms were reviewed, these show sinus rhythm with left ventricular hypertrophy but no ischemic changes. Her stress test was reviewed, her baseline echo did confirm LVH, the ventricle contracted normally both at rest and with exercise to a submaximal heart rate of 82% of her maximal predicted heart rate PG Care Time/CCT Total # of Minutes Spent Total Time Spent with Patient: Total time spent is greater than 50% in coordination of care (as documented) at patient's floor/unit and/or counseling patient: Coding Level of Care Code 70503 Initial Inpt Care Lvl 2 Diagnoses Acute chest pain R07.9
--- NOTE | 2020-03-23 19:58 | Hospitalist Progress Note ---
Date of Service March 23, 2020 Assessment & Plan (1) Atypical chest pain: Serial troponins negative since admission. Telemetry wnl. During the dobutamine stress test today she did not reach target HR (82% MPHR). There were no obvious regional wall motion abnormalities during the stress. With that said she had significant chest symptoms - similar to the chest symptoms she had had prior to being hospitalized. Symptoms resolved with reversal of the dobutamine. I asked cardiology to see her because of the symptomatology during the stress test. Plan is for diagnostic cath tomorrow. NPO after MN tonight. Check lipids in am. If cath is negative - coronary vasospasm? GI? other? (2) Left hip pain: Awaiting left total hip replacement. Was scheduled for this Monday. Operation will be dependent on results of heart cath. (3) Lymphocytic colitis: Continue budesonide. Sees Dr Chua. (4) Elevated blood pressure reading: Does not take anti-hypertensives at home. BPs here have consistently been high. 2nd to chronic steroid use along with stimulant medication? Trend the BPs. Consider Rx. (5) Scoliosis: Severe with radicular leg pains. Continue gabapentin 900 mg TID, Cymbalta 60mg PO QAM, metaxaone prn. (6) Spinal stenosis: see above in scoliosis (7) ADHD: Hold Adderall (8) Hypokalemia: replace; repeat BMP am Admission and Anticipated Discharge Date Admission Date: March 22, 2020 Subjective saw patient post-stress test. patient stated that during the stress test she had the same symptoms in the chest that she had had pre-hospitalization. she did not have GI symptoms during the stress test however. the chest symptoms ultimately resolved following reversal of the dobutamine. she also asks why her BPs are so elevated. telemetry overnight wnl. denies any worsening of her symptoms with eating food. Review of Systems Constitutional: no fever Respiratory: no cough and no dyspnea Cardiovascular: as per Subjective / HPI and + chest pain; no orthopnea, no paroxysmal nocturnal dyspnea, no palpitations and no edema Gastrointestinal: + diarrhea/loose stools (Chronic ); no nausea and no vomiting Physical Exam Constitutional: no acute distress and no altered mental status ENMT: external ear and nose normal, oropharynx normal Respiratory: normal respiratory effort, lungs clear to auscultation Cardiovascular: Rate/Rhythm: regular rate and regular rhythm Heart Sounds: normal S1 and normal S2; no murmur Vessels: posterior tibial pulses present and dorsalis pedis pulses present; no JVD Extremities: no edema Gastrointestinal (Abdomen): normal bowel sounds, soft, nontender, no hepatosplenomegaly Psychiatric: A+Ox3, euthymic affect Results & Data Results & Data ([facility]) Vital Signs (Past 12 Hours) Vital Signs Temp Pulse Pulse Resp BP Pulse Ox 03/23/20 19:29 36.8 C 78 21 137/91 98 03/23/20 16:00 65 03/23/20 15:20 36.7 C 64 19 152/94 H 98 03/23/20 11:55 37.2 C 61 18 155/87 H 98 03/23/20 08:00 36.7 C 63 67 20 151/97 H 97 Laboratory Results Laboratory Results - last 24 hr 03/23/20 03/23/20 03/23/20 00:24 06:20 06:20 WBC 4.72 L RBC 4.14 L Hgb 12.6 Hct 37.6 MCV 90.8 MCH 30.4 MCHC 33.5 RDW Std Deviation 44.5 RDW Coeff of Karena 13.5 Plt Count 263 MPV 8.5 Immature Gran % (Auto) 0.2 Neut % (Auto) 60.0 Lymph % (Auto) 26.5 Grand % (Auto) 8.9 Eos % (Auto) 3.8 Baso % (Auto) 0.6 Neut # (Auto) 2.83 Lymph # (Auto) 1.25 Grand # (Auto) 0.42 Eos # (Auto) 0.18 Baso # (Auto) 0.03 Immature Gran # (Auto) 0.01 Sodium 141 Potassium 3.3 L Chloride 107 Carbon Dioxide 27 Anion Gap 7.0 BUN 13 Creatinine 0.62 Est Cr Clr Drug Dosing 80.2 Est GFR ( Amer) 111.2 Est GFR (Non-Af Amer) 96.0 BUN/Creatinine Ratio 21.7 H Glucose 108 H Calcium 8.6 Troponin I < 0.015 < 0.015 PG Care Time/CCT Total # of Minutes Spent Total Time Spent with Patient: Total time spent is greater than 50% in coordination of care (as documented) at patient's floor/unit and/or counseling patient: Coding Level of Care Code 09939 Subseq Obs Care Lvl 2 Diagnoses Atypical chest pain R07.89 Left hip pain M25.552 Lymphocytic colitis K52.832 Elevated blood pressure reading R03.0 Scoliosis M41.9 Spinal stenosis M48.00 ADHD F90.9 Hypokalemia E87.6
[2020-03-24 07:12] LABS: BUN Creatinine Ratio 23.8 (10-20); Calcium 8.2 mg/dl (8.5-10.1); Creatinine Clr Calc Pharmacy 78.9 ml/min; Est GFR (African American) 110.6; Est GFR (Non-African American) 95.5; Potassium 3.7 mmol/L (3.5-5.1)
[2020-03-24] MEDS: PANTOprazole 40 MG TAB PO SCH (08:14)
[2020-03-24] MEDS: GABAPENTIN 300 MG CAP PO SCH ×2 (08:14→13:33)
[2020-03-24] MEDS: CHOLECALCIFEROL 1,000 UNITS 25 MCG TAB PO SCH (08:15)
[2020-03-24] MEDS: DULOXETINE HCL 60 MG CAP PO SCH (08:15)
[2020-03-24] MEDS: VITAMIN B COMPLEX TAB PO SCH (08:16)
[2020-03-24] MEDS: MULTIVITAMIN TAB PO SCH (08:16)
[2020-03-24] MEDS: BUDESONIDE EC 3 MG CAP PO SCH (08:16)
[2020-03-24] MEDS ORDERED: METOPROLOL TARTRATE 25 MG TAB PO SCH (09:00)
[2020-03-24] MEDS ORDERED: NiCARDipine HCL INJ 2.5 MG/ML 10 ML AMP ONE (09:16)
[2020-03-24] MEDS ORDERED: HEPARIN (PORCINE) 1000 UNIT/ML 10 ML (CATH LAB USE ONLY) ONE (09:16)
[2020-03-24] MEDS ORDERED: fentaNYL citrate 100 MCG/2 ML VIAL ONE (09:16)
[2020-03-24] MEDS ORDERED: MIDAZOLAM HCL 1 MG/ML 2ML VIAL ONE (09:16)
[2020-03-24] MEDS ORDERED: NITROGLYCERIN/D5W 100MCG/ML 20ML SYR ONE (09:16)
--- NOTE | 2020-03-24 11:45 | Pre Anesthesia Assessment ---
Date of Service March 24, 2020 Pre Sedation Assessment Vital Signs Temp Pulse Pulse Resp BP Pulse Ox 03/24/20 11:05 98.4 F 63 20 175/110 H 97 03/24/20 10:38 58 L 03/24/20 07:52 97.7 F 63 18 160/101 H 98 03/24/20 03:26 98.4 F 62 17 146/93 H 98 03/23/20 23:22 98.2 F 61 17 155/89 H 97 03/23/20 19:29 98.2 F 78 21 137/91 98 03/23/20 16:00 65 03/23/20 15:20 98.1 F 64 19 152/94 H 98 03/23/20 11:55 99.0 F 61 18 155/87 H 98 Cardiovascular RRR, no murmur, no edema Respiratory normal respiratory effort, lungs clear to auscultation Pre-Sedation Airway Assessment Smoking Status: Former smoker Hx Sleep Apnea: No Hx Difficult Intubation: No Short, Thick Neck: No Thyromental Distance: > or= 3.5 Finger Breadths Oral Cavity: + Chipped Teeth Mallampati Class: I ASA: ASA3 NPO Status Date of Last Intake of Fluids: 03/23/20 Time of Last Intake of Fluids: 21:00 Date of Last Intake of Solid Food: 03/23/20 Time of Last Intake of Solid Foods: 21:00 Procedure Planning Contraindications for Sedation: none Current Medications Reviewed: Yes Notes The planned sedation has been discussed with the patient. Informed Consent was obtained. I have identified the patient, determined the appropriateness of sedation and have assessed the patient immediately prior to the procedure. All medicine(s) and interventions are by my order.
--- NOTE | 2020-03-24 12:51 | Post Anesthesia Assessment ---
Date of Service March 24, 2020 Post Sedation Assessment Vital Signs Temp Pulse Pulse Resp BP Pulse Ox 03/24/20 11:05 98.4 F 63 20 175/110 H 97 03/24/20 10:38 58 L 03/24/20 07:52 97.7 F 63 18 160/101 H 98 03/24/20 03:26 98.4 F 62 17 146/93 H 98 03/23/20 23:22 98.2 F 61 17 155/89 H 97 03/23/20 19:29 98.2 F 78 21 137/91 98 03/23/20 16:00 65 03/23/20 15:20 98.1 F 64 19 152/94 H 98 Recovery Score Activity: Moves 4 extremities Respiration: Deep Breath/Cough Circulation: +/-20% PreAnes Value Consciousness: Fully Awake Oxygen Saturation: O2 needed for >90% Discharge Sedation Level of Care: Fast Track Phase II Post Sedation Plan On clinical assessment, the patient appears to have tolerated the sedation without complications. Patient is recovering as anticipated. Patient will continue to be monitored by nursing and may be discharged when sedation discharge criteria are met per below protocol. Upon Completions of procedure up to 15 minutes continue every 5 minute vital signs and the P.A.R. score; then discharge to a Phase I or Fast Track to Phase II per the following guidelines: * Discharge Patient to appropriate Phase II area if PAR is 8 or greater or return to pre- procedure baseline. The post - procedure orders will be as directed. * If PAR score is less than 8 or not return to pre-procedure baseline then patient will follow Phase I monitoring till PAR is reached for Phase II. The Phase I may be done in procedure room or may call to secure a Phase I area. * If naloxone or flumazenil are used for reversal, hold in Phase I for co ntinued monitoring from when last reversal dose was given for a minimum of 60 minutes or longer pending the nurse and/or physician discretion of patient condition before discharge to Phase II. Please call the Sedation Physician to re-evaluate and complete post-note for discharge to Phase II area. Do NOT discharge from procedure sedation or Phase 1 until post- sedation evaluation note is complete by procedure /sedation MD Sedation Discharge Instructions to be given to the patient at discharge to home.
--- NOTE | 2020-03-24 12:54 | Cardiac Catheterization ---
[facility] Data: Lead Systems Developer Cardiac Status Clinical evaluation leading to the procedure CAD Presenation: Unstable angina Anginal Classification: CCS III Heart Failure: No Cardiogenic Shock within 24 Hours: No Imaging Studies Past 6 Months: Yes Stress Studies Past 6 Months: Yes Stress Echocardiogram: Yes - Indeterminant Diagnostic Physicians Name: Rashard Brush MD Status: Elective Closure Device Percutaneous Entry Location: Radial Closure Device: Radial Band Recommendations: Medical Therapy and/or Counseling Intraprocedure Events Significant Disection: No Perforation: No Cardiac Cath Procedure Full Procedure Date March 24, 2020 Pre-Procedure Diagnosis Pre-Procedure Diagnosis: Angina AUC Score AUC Score: 7 Post-Procedure Diagnosis Post-Procedure Diagnosis: Mild CAD Procedure(s) Performed Procedure(s) Performed: Coronary Angiography and Left Heart Cath Wet End Helper Rashard Brush MD C4 Planner(s) Geovanna Estimated Blood Loss Estimated Blood Loss: 10 Medication(s) Medication(s): Fentanyl, Heparin, Lidocaine 1%, Nicardipine, Nitroglycerin and Versed Summary of Findings Indication: Suspected ACS, indeterminate stress test Access: 6 Fr right radial artery under ultrasound guidance Catheters: AIDA López Findings: LM -angiographically normal LAD -30 to 40% ostial stenosis, otherwise no significant disease Circumflex -30% mid segment disease RCA -dominant, small caliber vessel, distal luminal irregularities LVEDP -7 Arterial Closure: TR band Summary: 1. Mild to moderate nonobstructive coronary artery disease -30 to 40% ostial LAD 30% mid circumflex 2. Normal intracardiac filling pressure Recommendations: No high risk coronary disease to explain patient's chest symptoms. Patient okay to proceed with planned orthopedic surgery without additional testing Continue ASCVD risk factor modification Hemodynamics Rest Ao:: 129/81/101 Final Ao: 160/82/113 LV: 162/7 Recommendations Recommendations: Medical Therapy and/or Counseling Specimens Specimens: None Radiation Exposure (mGy) 480 Contrast (mls) 30 Fluids (cc crystalloids) Fluids (cc crystalloids): 59 Drains Drains: none Anesthesia moderate Procedural Complication(s) None Disposition PCU I attest to the content of the Intraoperative Record and any orders documented therein. Any exceptions are noted below. [facility] Card Cath Procedure Codes Cardiac Catheterization Procedure 1: Cardiovascular Cath Procedures: 49668 Coronaries and LHC (+/-LV) Moderate Sedation Procedure 1: Sedation/Anesthesia: 80908 Mod Sedation by the same physician;Init15 Min Child Age 5 & Up Procedure 2: Sedation/Anesthesia: 07480 Mod Sedation by the same physician; Ea [id number] Minutes PG Care Time/CCT Total # of Minutes Spent Total Time Spent with Patient: Total time spent is greater than 50% in coordination of care (as documented) at patient's floor/unit and/or counseling patient:
[2020-03-24] MEDS ORDERED: SODIUM CHLORIDE 0.9% 1000ML 1,000 ML IV SCH ×2 (13:00)
--- NOTE | 2020-03-24 15:14 | Discharge Summary ---
Date of Service date of admission - March 22, 2020 date of discharge - March 24, 2020 Admission HPI Per Admitting Provider Tj Castellanos is a 64 year old female who presents to the ER with sudden onset severe chest pain at rest. Chest pain occurred around 1-1:30pm today for around 15 minutes. Initially her symptoms started with severe leg cramps on getting up this morning. These were excruciating but she managed to walk through them. Cramps are not unusual for her but the severity of these was worse than normal. She usually gets her cramps first thing in the morning on waking up. After this she had breakfast with toast. She took her medication (including foasmax) and started having stomach cramps at the same time of shortly after this. These are unsual for her. Occurred in ther upper abdomen. Severity 10/10. Eventually relieved enough she managed to walk downstairs but were so severe she had to lie down. On lying down and trying to relax her pain changed to more heaviness in chest and tightness in her neck with radiation to both arms. Associated diaphoresis and shortness of breath. Severity 7/10 at worse, currently 0/10. She has never had a pain like this before. Taking fosamax for many years without an issues although she did just restart back on this around 2 months ago. She does note problems swallowing with occasional dysphagia requiring her to extend her neck to swallow. She called EMS and was brought to the ER via EMS. In the ER she was referred to the medicine team Risk factors: Family history with CAD in ther father and diet Stopped smoking 30 years ago. Smoked for around 20 years - (1 pack/day average) No diabetes. She does note her BP has been elevated recently in the office, although this was just at her last visit. Principal Diagnosis chest pain - NON CARDIAC Discharge Exam Constitutional no acute distress and no altered mental status ENMT external ear and nose normal, oropharynx normal Respiratory normal respiratory effort, lungs clear to auscultation Cardiovascular Rate/Rhythm: regular rate and regular rhythm Heart Sounds: normal S1 and normal S2; no murmur Vessels: posterior tibial pulses present and dorsalis pedis pulses present; no JVD Extremities: no edema Gastrointestinal (Abdomen) normal bowel sounds, soft, nontender, no hepatosplenomegaly Skin right wrist without hematoma Psychiatric A+Ox3, euthymic affect Discharge Data Allergies Allergy/AdvReac Type Severity Reaction Status Date / Time baclofen Allergy Unknown Hypotension Verified 03/22/20 16:06 titanium AdvReac Unknown "AUTO Verified 03/22/20 16:06 IMMUNE" REACTION , LICHEN PLANUS Consultations Cardiology - Tha Denson MD; Rashard Brush MD Procedures Performed Operation Date: 03/24/20 11:45 Actual Procedures p Cineradiography w/Routine Exam - Rashard Brush MD s Cath, Left with Cors and Vent - Rashard Brush MD s Ultrasound Vascular Access - Rashard Brush MD Findings: LM -angiographically normal LAD -30 to 40% ostial stenosis, otherwise no significant disease Circumflex -30% mid segment disease RCA -dominant, small caliber vessel, distal luminal irregularities LVEDP -7 Arterial Closure: TR band Summary: 1. Mild to moderate nonobstructive coronary artery disease -30 to 40% ostial LAD 30% mid circumflex 2. Normal intracardiac filling pressure Ordered Studies Dobutamine stress echocardiogram: * negative dobutamine stress echo for ischemia at 82% of MPHR * negative dobutamine stress EKG at 82% of MPHR * EF 60-65% * grade 1 diastolic dysfunction * mild mitral regurgitation Hospital Course (1) Atypical chest pain: Serial troponins negative x 3. Telemetry wnl except a few brief runs of atrial tachycardia. Although dobutamine stress echo was negative for ischemia at 82% MPHR she had chest symptoms that were similar to the chest symptoms she had had prior to being hospitalized. Symptoms during the stress test resolved with reversal of the dobutamine. Following the stress test she was seen formally in consult by [facility] who advised cardiac catheterization. Cardiac catheterization showed NON-OBSTRUCTIVE CAD -- see formal stress report. Thus, her chest symptoms were NON-CARDIAC in origin. Cannot rule out coronary vasospasm but unlikely. Gastrointestinal? Anxiety? Other? Recommended protonix 40mg once daily and consideration of outpatient GI referral for additional work-up. Certainly at risk of esophageal and gastric issues due to chronic steroid use, fosamax use, etc. Even adderall can cause stomach upset. I advised discontinuation of fosamax as she has had 5 years of use of such. With respect to her upcoming left hip replacement she is clear from a cardiovascular perspective to proceed with her operation. Lastly, patient reported palpitations at home. The palpitations could be from atrial tachycardia as seen on monitoring while here. Could consider 30-day event monitor to exclude other dysrhythmia. I did start her on metoprolol 12.5mg BID for her palpitations & her elevated BPs (see below). (2) Elevated blood pressure reading: Does not take anti-hypertensives at home. BPs were consistently high while hospitalized. Uncertain if white coat HTN vs essential HTN. I did advise in light of palpitations, consistently high readings, and upcoming surgery to start metoprolol 12.5mg BID. Recommended checking her BPs at home and following up with PCP after discharge. (3) Left hip pain: Awaiting left total hip replacement. Scheduled for 03/27/20. Surgery to be performed by Dr Ovidio Rehman, [facility]oped[facility]. He was made aware of this hospitalization. (4) Lymphocytic colitis: Continue budesonide. Sees Dr Ramiro Chua, [facility]. (5) Scoliosis: Severe with radicular leg pains. Continue gabapentin 900 mg TID, Cymbalta 60mg PO QAM, metaxaone prn. (6) Spinal stenosis: see above in scoliosis (7) ADHD: Takes chronic Adderall (8) Hypokalemia: replaced and normalized prior to discharge Total Time Total Time Spent Total Time Spent (In Minutes): 45 Total Time Includes: Examination of the Patient, Discharge Planning, Medication Reconciliation and Communication With Other Providers Discharge Plan Discharge Items Patient Disposition: Home - Self-Care Reason For Visit: CHEST PAIN, ABDOMINAL PAIN Discharge Diagnosis: 1. chest pain - no evidence of heart attack. Heart catheterization with mild plaque build-up in 2 out of 3 vessels (30% narrowing only). 2. question of reflux and/or gastritis (irritation of stomach lining) 3. mildly high cholesterol; total cholesterol = 224; LDL ("bad" cholesterol) = 109; HDL ("good" cholesterol) = 96 4. elevated blood pressures 5. brief runs of a benign heart rhythm called atrial tachycardia Activity: Per Instructions section Non-emergency contact: Primary Care Provider Call non-emergency contact if: you have any medication questions, your symptoms worsen, your pain is not controlled and you have a fever Follow-up/Referrals: Rasta Blanco, [Primary Care Provider] - (please touch base with Dr Blanco prior to your hip surgery) Diet: Heart Healthy Addtl Attending Provider Instructions: You were admitted to the hospital and evaluated for the problems listed in "discharge diagnoses" above. Due to the chest pain we performed a stress test. Although the stress test was normal you had chest discomfort/tightness during the procedure. Thus, the cardiology team saw you and felt you should undergo a heart c atheterization to ensure you didn't have blocked coronary arteries as the cause of your symptoms. Dr Brush performed your heart catheterization today and 2 out of the 3 major coronary vessels had minor plaque build-up of about 30%. Typically narrowing at these levels does not cause chest pain or other chest symptoms (shortness of breath, etc). The cause of your abdominal pain and chest pain was most likely gastrointestinal in origin. I cannot rule out spasm of coronary arteries but this is very unlikely. Doubt this was musculoskeletal in origin. Your blood pressures were consistently elevated throughout your hospitalization. I would recommend purchasing a blood pressure cuff and checking your BPs once to twice daily. Write these numbers down and give them to Dr Blanco to look them over. In the meantime please take metoprolol 12.5mg twice daily, first dose tonight. For your esophagus and stomach please take pantoprazole 40mg once daily every morning. Start this tomorrow. Would take for 2 months (or longer depending on Dr Blanco's advice). I would also recommend that you stop your fosamax. Lastly, please speak to Dr Blanco about the risks vs benefits of taking cholesterol medication in light of the minor plaque build-up in the heart arteries. I will speak with Dr Rehman about your upcoming hip surgery and this hospitalization. Return to [facility] if - * you have fever over 100.4 degrees * you have worsening shortness of breath * you have severe abdominal pains * any other concerns Addtl [facility] Consultant Provider Instructions: ACTIVITY RECOMMENDATIONS following your heart catheterization: It is common to feel weak and fatigue for a few days. * Do not drive or operate any motorized equipment for the next three days. * Limit stair usage (2 or 3 trips a day only) for the next three days. * Do not lift anything heavier than 10 pounds for the next three days with your right hand/arm. . * Do not engage in vigorous exercise or any sports for the next five days. * You may shower the day after your procedure, but do not immerse the right wrist for three days. Cleanse the site gently with soap and water. SPECIAL CARE INSTRUCTIONS: * You may replace the pressure dressing or band-aid the morning after the procedure. * After your procedure, it is normal to have a small bruise or small lump at the site. Examine your site daily for any change in the bruise or lump, redness, swelling, drainage or numbness. Notify your doctor if any change. BLEEDING: * If there is a small amount of bleeding at the site, lie down and apply firm pressure with a clean cloth for ten minutes. When the bleeding stops, lie quietly keeping the procedure limb straight for six hours. Notify your doctor as soon as possible. * If the bleeding does not stop after ten minutes or if there is a large amount of bleeding or spurting, call 911 immediately. Continue to lie down and hold firm pressure until help arrives. SKIN IRRITATION: * You may experience some redness and/or swelling in the area where radiation was administered. If any skin irritation occurs, please contact your family physician. Pending Studies at Discharge: No Stand-Alone Forms: [facility], Smoking Cessation Medications and DC Order Prescriptions: New pantoprazole 40 mg Tablet,Delayed Release (Dr/Ec) 40 mg PO QAM Qty: 30 RF: 1 metoprolol tartrate 25 mg Tablet 12.5 mg PO BID Qty: 60 RF: 5 Continued diphenoxylate-atropine [Lomotil] 2.5-0.025 mg tablet 1 tab PO BID PRN (Reason: Diarrhea) RF: 0 budesonide 3 mg capsule,delayed,extend.release 6 mg PO QAM RF: 0 multivitamin [Multiple Vitamins] Tablet 1 tab PO DAILY RF: 0 dextroamphetamine-amphetamine [Adderall] 10 mg tablet 10 mg PO TID RF: 0 hydrocodone-acetaminophen 10-325 mg tablet 1 - 2 tab PO BID PRN (Reason: Pain) RF: 0 gabapentin 300 mg capsule 900 mg PO TID RF: 0 lorazepam 1 mg tablet 1 mg PO DAILY PRN (Reason: Anxiety) RF: 0 vitamin B complex Capsule 1 cap PO DAILY RF: 0 Zinc-15 66 mg Tablet 66 mg PO DIRECTED RF: 0 cholecalciferol (vitamin D3) [Vitamin D3] 1,000 unit Capsule 1,000 unit PO DAILY RF: 0 metaxalone 800 mg tablet 800 mg PO BID PRN (Reason: Muscle Spasm) RF: 0 magnesium oxide 400 mg magnesium Tablet 400 mg PO DIRECTED RF: 0 celecoxib [Celebrex] 100 mg Capsule 100 mg PO DIRECTED RF: 0 duloxetine [Cymbalta] 60 mg Capsule,Delayed Release(Dr/Ec) 60 mg PO QAM RF: 0 meclizine 25 mg tablet 25 mg PO TID PRN (Reason: Dizziness) RF: 0 Discontinued alendronate 70 mg tablet 70 mg PO WK RF: 0 Discharge Orders: Discharge Order (Routine); Ordered 03/24/20 Ordered By: Dandre Jones/Other Patient Handouts: Cardiac Catheterization Dc, Diagnostic Cardiac Catheterization Ch, Pantoprazole tablets, Metoprolol tablets Admission Data Admit Date/Time: 03/22/20 17:21 Attending Provider: Dandre Tiwari Admit Provider: Dandre Staples Primary Care Provider: Rasta Blanco Other Providers: Dandre Staples ; Tha Denson Other Interventions: Discharge Summary Assessment (RN) Last Done: 03/24/20 18:04 DC Date/Time DO NOT enter until pt leaves facility: 03/24/20 20:39 Coding Level of Care Code 43129 OBS Care - Discharge Diagnoses Atypical chest pain R07.89 Elevated blood pressure reading R03.0 Left hip pain M25.552 Lymphocytic colitis K52.832 Scoliosis M41.9 Spinal stenosis M48.00 ADHD F90.9 Hypokalemia E87.6
[2020-03-24] MEDS ORDERED: METOPROLOL TARTRATE 25 MG TAB PO ONE (20:02)
[2020-03-24] MEDS ORDERED: Nursing to Pharmacy Communication SCH (20:30)
--- NOTE | 2020-03-25 16:11 | Electrocardiogram Report ---
Test Reason : Blood Pressure : / mmHG Vent. Rate : 078 BPM Atrial Rate : 078 BPM P-R Int : 158 ms QRS Dur : 086 ms QT Int : 392 ms P-R-T Axes : 066 052 040 degrees QTc Int : 446 ms Normal sinus rhythm Voltage criteria for left ventricular hypertrophy Abnormal ECG When compared with ECG of 04-MAR-2020 13:30, No significant change was found Confirmed by Tha Denson ([id number]) on 03/25/2020 4:10:47 PM Referred By: Confirmed By:Tha Denson
--- NOTE | 2020-03-25 16:15 | Electrocardiogram Report ---
Test Reason : Blood Pressure : / mmHG Vent. Rate : 067 BPM Atrial Rate : 067 BPM P-R Int : 156 ms QRS Dur : 086 ms QT Int : 444 ms P-R-T Axes : 063 037 041 degrees QTc Int : 469 ms Normal sinus rhythm Minimal voltage criteria for LVH, may be normal variant Borderline ECG When compared with ECG of 22-MAR-2020 14:40, (unconfirmed) No significant change was found Confirmed by Tha Denson ([id number]) on 03/25/2020 4:14:57 PM Referred By: REFERRED SELF Confirmed By:Tha Denson
== END 2020-03-24 20:39 | disposition home or self-care (01) ==
LOC: 2E 14:29 → ED 14:29 → SUATTDRO 17:21 → 2E 18:04

== ENCOUNTER 2020-03-27 10:40 | Observation (INO) ==
--- NOTE | 2020-03-03 16:41 | PAT Medication Instructions ---
Medication Instructions Date of Service March 03, 2020 Home Medications Medication Instructions Recorded meclizine 25 mg PO TID PRN #14 tab 12/18/18 alendronate 70 mg PO WK cholecalciferol (vitamin D3) [Vitamin D3] 1,000 unit PO DAILY dextroamphetamine-amphetamine [Adderall] 10 mg PO BID gabapentin 900 mg PO TID hydrocodone-acetaminophen 1 - 2 tab PO BID PRN lorazepam 1 mg PO UD PRN magnesium oxide 500 mg PO DAILY meclizine 25 mg PO TID PRN metaxalone 800 mg PO UD PRN multivitamin [Multiple Vitamins] 1 tab PO DAILY vitamin B complex 1 cap PO DAILY zinc sulfate [Zinc-15] 66 mg PO DAILY budesonide 3 mg capsule,delayed,extended release 6 mg PO QAM diphenoxylate-atropine 2.5 mg-0.025 mg tablet 1 tab PO BID Medical Marijuana 1 dose PO UD celecoxib [Celebrex] 100 mg PO BID duloxetine [Cymbalta] 60 mg PO QAM Continue as directed alendronate 70 mg PO WK (just do not take AM of surgery) ASK your surgeon for instructions celecoxib [Celebrex] 100 mg PO BID STOP taking 2 weeks before surgery zinc sulfate [Zinc-15] 66 mg PO DAILY DO NOT take the morning of surgery cholecalciferol (vitamin D3) [Vitamin D3] 1,000 unit PO DAILY 'magnesium oxide 500 mg PO DAILY multivitamin [Multiple Vitamins] 1 tab PO DAILY vitamin B complex 1 cap PO DAILY Medical Marijuana 1 dose PO UD metaxalone 800 mg PO UD PRN diphenoxylate-atropine 2.5 mg-0.025 mg tablet 1 tab PO BID dextroamphetamine-amphetamine [Adderall] 10 mg PO BID Take morning of surgery With a small sip of water, OTHERWISE NOTHING TO EAT OR DRINK AFTER MIDNIGHT: gabapentin 900 mg PO TID hydrocodone-acetaminophen 1 - 2 tab PO BID PRN (okay to take up to 4 hours prior to surgery if needed) lorazepam 1 mg PO UD PRN (if needed) meclizine 25 mg PO TID PRN (if needed) budesonide 3 mg capsule,delayed,extended release 6 mg PO QAM duloxetine [Cymbalta] 60 mg PO QAM Take evening before surgery dextroamphetamine-amphetamine [Adderall] 10 mg PO BID gabapentin 900 mg PO TID hydrocodone-acetaminophen 1 - 2 tab PO BID PRN (if needed) lorazepam 1 mg PO UD PRN (if needed) meclizine 25 mg PO TID PRN (if needed) metaxalone 800 mg PO UD PRN (if needed) diphenoxylate-atropine 2.5 mg-0.025 mg tablet 1 tab PO BID Medical Marijuana 1 dose PO UD Other Notes If you have any questions please call us at [phone] or [phone] or [phone] or [phone]
--- NOTE | 2020-03-04 13:20 | Anesthesiology Consultation ---
Date of Service March 04, 2020 Assessment & Plan (1) Encounter for pre-operative examination: Chart Review Chart Review: Acceptable Risk for Surgery (pending preop Covid testing) and Patient seen in Pre Admission Testing Pt with significant scoliosis- did discuss that plan is for SAB but may need to have GA- pt understands and will discuss with anesthesia DOS. Pictures of patient's x rays films in chart. Per patient, Dr Rehman aware of titanium allergy per patient Per PAT appt 03/04/20- traveled to [place] 02/09/20 and then to [place]- returned home 02/16/20. Has to return to [place] in future for medical appt but knows to wear mask and practices good hand hygiene. Educated patient to follow up with surgeon's office regarding Covid testing. Educated on importance of self quarantining, social distancing and wearing mask in public both for the patient and household contacts. Teaching & Discussion Pre-Anesthesia Teaching/Discussion Notes: Instructed NPO after midnight before surgery,except medications with 15 cc of water. Medication instructions provided according to the [facility] guidelines. History Surgery Operation Date: 03/27/20 08:50 Proposed Procedures p Left Anterior Total Hip Arthroplasty - Ovidio Rehman, DO Height/Weight Height: 5 ft 4.2 in Weight: 67.8 kg Allergies Allergy/AdvReac Type Severity Reaction Status Date / Time titanium AdvReac Unknown "AUTO Unverified 02/26/20 11:10 IMMUNE" REACTION , LICHEN PLANUS MUSCLE RELAXER Allergy Unknown LOWERED Uncoded 03/04/20 13:13 BLOOD PRESSURE Medications Home Medications Medication Instructions Recorded Confirmed Last Taken alendronate 70 mg PO WK 12/18/18 02/26/20 Unknown cholecalciferol (vitamin D3) 1,000 unit PO DAILY 12/18/18 02/26/20 Unknown [Vitamin D3] dextroamphetamine-amphetamine 10 mg PO BID 12/18/18 02/26/20 Unknown [Adderall] gabapentin 900 mg PO TID 12/18/18 02/26/20 Unknown hydrocodone-acetaminophen 1 - 2 tab PO BID PRN 12/18/18 02/26/20 Unknown lorazepam 1 mg PO UD PRN 12/18/18 02/26/20 Unknown magnesium oxide 500 mg PO DAILY 12/18/18 02/26/20 Unknown meclizine 25 mg PO TID PRN #14 tab 12/18/18 02/26/20 Unknown metaxalone 800 mg PO UD PRN 12/18/18 02/26/20 Unknown multivitamin [Multiple Vitamins] 1 tab PO DAILY 12/18/18 02/26/20 Unknown vitamin B complex 1 cap PO DAILY 12/18/18 02/26/20 Unknown zinc sulfate [Zinc-15] 66 mg PO DAILY 12/18/18 02/26/20 Unknown budesonide 3 mg 6 mg PO QAM 07/19/19 02/26/20 Unknown capsule,delayed,extended release diphenoxylate-atropine 2.5 1 tab PO BID 07/19/19 02/26/20 Unknown mg-0.025 mg tablet Medical Marijuana 1 dose PO UD 02/26/20 02/26/20 Unknown celecoxib [Celebrex] 100 mg PO BID 02/26/20 02/26/20 Unknown duloxetine [Cymbalta] 60 mg PO QAM 02/26/20 02/26/20 Unknown Past Medical History Medical History (Updated 03/04/20 @ 13:50 by Shirley Horner PA-C) ADHD Hay fever EXPERIENCES CHANGE OF TASTE DUE MEDICATIONS (CHRONIC ISSUE/STABLE) History of melanoma AND HX SQUAMOUS CELL - REMOVED , HX MOHS/FOLLOWS DERM RECOMMENDED 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 Lichen planus TO LOWER EXTREMITIES- CHRONIC Lung cyst CALCIFIED LUNG CYST, LEFT LUNG - CHRONIC - NO CHANGES Lymphocytic colitis Scoliosis SIGNIFICANT Spinal stenosis Vestibular schwannoma S/P GAMMA KNIFE SURGERY 2019- BELIEVES IMPROVING Exercise / Class Metabolic Activity II 4-5 Yardwork/Stairs/Walk up hill (ONE FLIGHT STAIRS - NO CHEST PAIN OR SOB ) Past Surgical History Surgical History History of section History of colonoscopy History of gynecologic surgery ECTOPIC History of left breast biopsy History of neck surgery MILD LIMITATIONS SIDE TO SIDE MOVEMENT MILD LIMITATION WHEN LOOKING DOWN History of oral surgery SEVERAL TEETH REMOVED, ROOT CANAL WITH ANESTHESIA History of surgery GAMMA KNIFE [place] teeth removed Past Anesthesia History No Hx of Anesthesia Complications and No Family Hx of Anesthesia Complications History of PONV No Hx of PONV and No Hx of Motion Sickness Social History Smoking Status: Former smoker Do You Dip or Chew Tobacco: No Smoking End Date: 30 YR AGO Hx Alcohol Use: Yes alcohol intake frequency: holidays/special occasions only Hx Substance Use: Yes (IN COLLEGE , NONE CURRENT) substance use type: prescription drug and other Substance Use Type Other:: MEDICAL ALFA CARD - INSTRUCTED TO BRING DAY OF PAT VISIT Review of Systems Occ cough secondary to allergies Occ reflux Occ snoring- no witnessed apnea or sleep study Patient denies chest pain, shortness of breath, dyspnea on exertion, wheezing, palpitations. No hx of seizures, stroke, NV. No hx of blood clots or blood transfusions Physical Exam Vital Signs VITALS BP 120/75 P 71 TEMP 98.1 SP02 97% RESP 16 Constitutional no acute distress ENMT Mouth: no TMJ clicking Thyromental Distance: > or= 3.5 Finger Breadths (3.5) Mallampati Class: II Missing molars Chipped crown Neck + limited neck extension (mild ) Respiratory normal respiratory effort; no respiratory distress Auscultation: lungs clear to auscultation bilaterally; no wheezes Cardiovascular Rate/Rhythm: regular rate and regular rhythm Heart Sounds: no murmur Vessels: no carotid bruit Musculoskeletal Spine: + pain with cervical ROM (mild ) and + scoliosis (significant ) Neurologic moves all extremities Psychiatric Orientation: alert Testing Laboratory Results 03/04/20 13:32 03/04/20 13:32 PT 10.5 Seconds (9.0-12.0) 03/04/20 13:32 INR 1.0 (0.9-1.1) 03/04/20 13:32 APTT 28.7 Seconds (21.0-31.0) 03/04/20 13:32 Blood Type O Positive 03/04/20 13:32 Antibody Screen NEGATIVE 03/04/20 13:32 Mild leukocytosis- chronic and stable Electrocardiogram Date: 03/04/20 Findings: + NSR @ (66) and + no change from (December 18, 2018 per cardio ) Minimal voltage criteria for LVH, may be normal variant. Chest X-Ray Date: 03/04/20 Findings: + NAD Benign calcified granuloma left pulmonary apex. Thoracic scoliosis.
--- NOTE | 2020-03-04 14:06 | XRay Report ---
XR chest Pre-admission PA/Lat CLINICAL HISTORY: PAT preoperative evaluation COMPARISON STUDY: No previous studies for comparison. FINDINGS: The bones soft tissues and hemidiaphragms are normal. The cardiomediastinal silhouette is n ormal. The lungs are clear. The pulmonary vasculature is normal. Benign calcified granuloma left pulm onary apex. Thoracic scoliosis. IMPRESSION: No acute process. ACT 112: Negative or not required by law. The above report was generated using voice recognition software. It may contain grammatical, syntax or spelling errors. Electronically signed by: Tyler Gorman M.D. 03/04/2020 2:05 PM
[2020-03-04 14:07] LABS: Basophils # (auto) 0.03 K/uL (0-0.2); Basophils % (auto) 0.7 %; Eosinophils # (auto) 0.21 K/uL (0-0.5); Hematocrit (blood only) 36.5 % (37-47); Immature Granulocytes # (auto) 0.01 K/uL (0.00-0.02); Immature Granulocytes % (auto) 0.2 %; Lymphocytes # (auto) 1.23 K/uL (1.2-3.4); Lymphocytes % (auto) 29.5 %; Mean Corpuscular Hemoglobin 29.9 pg (25-34); Mean Corpuscular Hgb Conc 32.9 g/dL (32-36); Mean Corpuscular Volume 90.8 fL (80-100); Mean Platelet Volume 8.4 fL (7.4-10.4); Monocytes # (auto) 0.31 K/uL (0.11-0.59); Monocytes % (auto) 7.4 %; Neutrophils # (auto) 2.38 K/uL (1.4-6.5); Neutrophils % (auto) 57.2 %; Platelet Count 262 K/uL (130-400); RDW Coefficient of Variation 13.6 % (11.5-14.5); RDW Standard Deviation 44.9 fL (36.4-46.3); Red Blood Count 4.02 M/uL (4.2-5.4); White Blood Count 4.17 K/uL (4.8-10.8)
[2020-03-04 14:28] LABS: Partial Thromboplastin Time 28.7 Seconds (21.0-31.0); Prothrombin Time 10.5 Seconds (9.0-12.0)
[2020-03-04 16:20] LABS: BUN Creatinine Ratio 21.9 (10-20); Calcium 8.7 mg/dl (8.5-10.1); Est GFR (African American) 101.6; Est GFR (Non-African American) 87.7
--- NOTE | 2020-03-05 06:17 | Electrocardiogram Report ---
Test Reason : Blood Pressure : / mmHG Vent. Rate : 066 BPM Atrial Rate : 066 BPM P-R Int : 168 ms QRS Dur : 084 ms QT Int : 412 ms P-R-T Axes : 075 072 068 degrees QTc Int : 431 ms Normal sinus rhythm Minimal voltage criteria for LVH, may be normal variant Borderline ECG When compared with ECG of 18-DEC-2018 16:39, No significant change was found Confirmed by Eduar Mays ([id number]) on 03/05/2020 6:17:19 AM Referred By: Ovidio Rehman Confirmed By:dEuar Mays
--- NOTE | 2020-03-26 07:42 | History & Physical Report ---
Date of Service March 26, 2020 Assessment & Plan (1) Arthritis of left hip: We will proceed with a left anterior total hip arthroplasty. Postoperatively she will be started on aspirin for DVT prophylaxis and kept overnight in the hospital for postoperative medical management. [facility] plans [facility] discharge. Roxanne is a low risk for joint placement surgery without any major comorbidities. Present on Admission?: Yes History of Present Illness Chief Complaint: Primary osteoarthritis of the left hip Primary Care Provider: Rasta Blanco DO Roxanne is a pleasant 64-year-old female who is been dealing with chronic increasing left hip and groin pain. X-rays and clinical examination have been diagnostic for advanced osteoarthritis of the left hip. After failing conservative treatment, she has elected proceed with a left total hip arthroplasty. She also has degenerative scoliosis. She has been followed by a neurosurgeon at [facility]. He wrote me a letter in agreement with a hip replacement surgery. He also asked that I keep her leg lengths are equal as they do not cause any further progression of scoliosis. Allergies Allergy/AdvReac Type Severity Reaction Status Date / Time baclofen Allergy Unknown Hypotension Verified 03/22/20 16:06 titanium AdvReac Unknown "AUTO Verified 03/22/20 16:06 IMMUNE" REACTION , LICHEN PLANUS Home Medications Home Medications Medication Instructions Recorded Confirmed Type Zinc-15 66 mg PO DIRECTED 12/18/18 03/22/20 History cholecalciferol (vitamin D3) 1,000 unit PO DAILY 12/18/18 03/22/20 History [Vitamin D3] dextroamphetamine-amphetamine 10 mg PO TID 12/18/18 03/22/20 History [Adderall] gabapentin 900 mg PO TID 12/18/18 03/22/20 History hydrocodone-acetaminophen 1 - 2 tab PO BID PRN 12/18/18 03/22/20 History lorazepam 1 mg PO DAILY PRN 12/18/18 03/22/20 History magnesium oxide 400 mg PO DIRECTED 12/18/18 03/22/20 History metaxalone 800 mg PO BID PRN 12/18/18 03/22/20 History multivitamin [Multiple Vitamins] 1 tab PO DAILY 12/18/18 03/22/20 History vitamin B complex 1 cap PO DAILY 12/18/18 03/22/20 History budesonide 3 mg 6 mg PO QAM 07/19/19 03/22/20 History capsule,delayed,extended release diphenoxylate-atropine 2.5 1 tab PO BID PRN 07/19/19 03/22/20 History mg-0.025 mg tablet celecoxib [Celebrex] 100 mg PO DIRECTED 02/26/20 03/22/20 History duloxetine [Cymbalta] 60 mg PO QAM 02/26/20 03/22/20 History meclizine 25 mg PO TID PRN 03/22/20 03/22/20 History metoprolol tartrate 12.5 mg PO BID #60 tab 03/24/20 Rx pantoprazole 40 mg PO QAM #30 tab 03/24/20 Rx Past Med/Surg History Medical History ADHD Hay fever EXPERIENCES CHANGE OF TASTE DUE MEDICATIONS (CHRONIC ISSUE/STABLE) History of melanoma AND HX SQUAMOUS CELL - REMOVED , HX MOHS/FOLLOWS DERM RECOMMENDED 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 Lichen planus TO LOWER EXTREMITIES- CHRONIC Lung cyst CALCIFIED LUNG CYST, LEFT LUNG - CHRONIC - NO CHANGES Lymphocytic colitis Scoliosis SIGNIFICANT Spinal stenosis Vestibular schwannoma S/P GAMMA KNIFE SURGERY 2019- BELIEVES IMPROVING Surgical History History of section History of colonoscopy History of gynecologic surgery ECTOPIC History of left breast biopsy History of neck surgery MILD LIMITATIONS SIDE TO SIDE MOVEMENT MILD LIMITATION WHEN LOOKING DOWN History of oral surgery SEVERAL TEETH REMOVED, ROOT CANAL WITH ANESTHESIA History of surgery GAMMA KNIFE [place] teeth removed Family History Mother Family history of CREST syndrome Father Family history of diabetes mellitus (DM) Son Family history of diabetes mellitus (DM) Social History Smoking Status: Former smoker Second Hand Exposure: No; Hx Alcohol Use: Yes Alcohol type: wine and hard liquor Hx Substance Use: No Preferred Language: Bruneian Communication Ability: Effective Tray Checker Required: No Beliefs That Will Affect Care: None marital status: Current Living Situation: Alone Current Living Situation Comment: son intermittently current occupational status: employed Feels Safe at Home: Yes Review of Systems Review of Systems: All systems reviewed & are unremarkable except as noted in HPI & below Physical Exam Constitutional: WD/WN, vitals as above Eyes: PERRL, conjunctivae normal, anicteric sclerae ENMT: external ear and nose normal, oropharynx normal Neck: trachea midline, no thyromegaly Respiratory: normal respiratory effort Cardiovascular: RRR, no murmur, no edema Gastrointestinal (Abdomen): normal bowel sounds, soft, nontender, no hepatosplenomegaly Musculoskeletal: Physical examination of the left hip reveals decreased range of motion with flexion, internal and external rotation. There is significant groin pain with forced internal rotation of the hip his leg lengths are essentially equal. Psychiatric: A+Ox3, euthymic affect Results & Data Results & Data ([facility]) Diagnostic Findings Radiographs of the left hip and pelvis demonstrate advanced osteoarthritis with joint space narrowing osteophyte formation and tpln-yd-nogn articulation. PG Care Time/CCT Total # of Minutes Spent Total Time Spent with Patient: Total time spent is greater than 50% in coordination of care (as documented) at patient's floor/unit and/or counseling patient: Coding Level of Care Code 01426 Initial Inpt Care Lvl 3 Diagnoses Arthritis of left hip M16.12
--- NOTE | 2020-03-27 10:27 | History & Physical Bridge Note ---
Date of Service March 27, 2020 History & Physical Bridge Note I have examined the patient, reviewed the History & Physical and in the interval since the performance of the History & Physical I have noted the following changes of clinical significance: no changes noted
[~2020-03-27 10:40] MED LIST changes: +ACETAMINOPHEN 500 MG TAB PO SCH; -AMPH10TA2 PO; -B-COCAP2 PO; +BUPIVACAINE 0.5 % 5 MG/1 ML PF 10ML VIAL ONE; -CALC-478 PO; +CEFAZOLIN 1000MG 1,000 MG/7.5 ML SYR IV SCH; -CELE100C PO; -CITA20TA9 PO; +FAMOTIDINE 20 MG TAB PO SCH; -FSMD/70 PO; -GABA-1218 PO; -GABA-1219 PO; +GABAPENTIN 600 MG DOSE PO SCH; -GLUC10007 PO; -HYDR-3419 PO; +LR 500ML BOLUS, THEN 15ML/HR IV SCH; +LR 60ML/HR IV SCH; -META1TAB22 PO; -MULTTAB58 PO; -NRN/300 PO; -PREDPOW63 PO; -PROB1TAB16 PO; +ROPIVACAINE 0.5% HCL/PF 150 MG, BUPIVACAINE 0.5% MPF 30 ML, EPINEPHrine 30MG/30ML (OR U... INSTIL SCH; -TRAM-10 PO; +TRANEXAMIC ACID / 0.7% NACL 1,000 MG/100 ML BAG IV SCH; +dexAMETHasone 4 MG TAB PO SCH
[2020-03-27] MEDS ORDERED: MIDAZOLAM HCL 1 MG/ML 2ML VIAL ONE (10:48)
[2020-03-27] MEDS ORDERED: ORTHO JOINT ANESTHETIC ONE (11:16)
[2020-03-27] MEDS ORDERED: fentaNYL citrate 100 MCG/2 ML VIAL ONE ×2 (11:47→12:39)
[2020-03-27] MEDS ORDERED: ONDANSETRON INJ 2 MG/ML 2 ML VIAL ONE (12:39)
[2020-03-27] MEDS ORDERED: LIDOCAINE HCL 2% 2 ML VIAL/AMP(20MG/ML) INFIL ONE (12:39)
[2020-03-27] MEDS ORDERED: PROPOFOL IV EMULSION 10 MG/ML 20 ML VIAL IV ONE (12:39)
[2020-03-27] MEDS ORDERED: DEXAMETHASONE SOD INJ 4 MG/ML VIAL ONE (12:39)
[2020-03-27] MEDS ORDERED: HYDROmorphone INJ 2 MG/ML SYR/VIAL ONE (12:44)
--- NOTE | 2020-03-27 12:44 | Anesthesiology Consultation ---
Date of Service March 27, 2020 Assessment & Plan Chart Review Chart Review: Acceptable Risk for Surgery Consults Requested none History Surgery Operation Date: 03/27/20 12:30 Proposed Procedures p Left Anterior Total Hip Arthroplasty - Ovidio Rehman DO Height/Weight Height: 5 ft 4.2 in Weight: 68.039 kg Allergies Allergy/AdvReac Type Severity Reaction Status Date / Time baclofen Allergy Unknown Hypotension Verified 03/27/20 11:05 titanium AdvReac Unknown "AUTO Verified 03/27/20 11:05 IMMUNE" REACTION , LICHEN PLANUS Medications Home Medications Medication Instructions Recorded Confirmed Last Taken Zinc-15 66 mg PO DIRECTED 12/18/18 03/27/20 Unknown cholecalciferol (vitamin D3) 1,000 unit PO DAILY 12/18/18 03/27/20 03/26/20 17:00 [Vitamin D3] dextroamphetamine-amphetamine 10 mg PO TID 12/18/18 03/27/20 03/26/20 14:00 [Adderall] gabapentin 900 mg PO TID 12/18/18 03/27/20 03/22/20 12:00 hydrocodone-acetaminophen 1 - 2 tab PO BID PRN 12/18/18 03/27/20 03/26/20 23:55 lorazepam 1 mg PO DAILY PRN 12/18/18 03/27/20 03/26/20 21:00 magnesium oxide 400 mg PO DIRECTED 12/18/18 03/27/20 1 Week Ago ~03/20/20 metaxalone 800 mg PO BID PRN 12/18/18 03/27/20 03/22/20 AM DOSE multivitamin [Multiple Vitamins] 1 tab PO DAILY 12/18/18 03/27/20 03/21/20 09:00 vitamin B complex 1 cap PO DAILY 12/18/18 03/27/20 03/24/20 09:00 budesonide 3 mg 6 mg PO QAM 07/19/19 03/27/20 03/22/20 capsule,delayed,extended release diphenoxylate-atropine 2.5 1 tab PO BID PRN 07/19/19 03/27/20 Unknown mg-0.025 mg tablet celecoxib [Celebrex] 100 mg PO DIRECTED 02/26/20 03/27/20 Unknown duloxetine [Cymbalta] 60 mg PO QAM 02/26/20 03/27/20 03/27/20 04:30 meclizine 25 mg PO TID PRN 03/22/20 03/27/20 Unknown metoprolol tartrate 12.5 mg PO BID #60 tab 03/24/20 03/27/20 03/27/20 04:30 pantoprazole 40 mg PO QAM #30 tab 03/24/20 03/27/20 03/27/20 04:30 Active Medications Generic Name Dose Route Start Last Admin Trade Name Ming PRN Reason Stop Dose Admin Acetaminophen 1,000 mg 03/27/20 06:00 03/27/20 11:22 Tylenol PO 03/27/20 18:00 1,000 mg PREOP KRISHNA Administration Dexamethasone 8 mg 03/27/20 06:00 03/27/20 11:22 Decadron PO 03/27/20 18:00 8 mg PREOP KRISHNA Administration Famotidine 20 mg 03/27/20 06:00 03/27/20 11:22 Pepcid PO 03/27/20 18:00 20 mg PREOP KRISHNA Administration Gabapentin 600 mg 03/27/20 06:00 03/27/20 11:21 Neurontin PO 03/27/20 18:00 600 mg PREOP KRISHNA Administration Lactated Ringer's 1,000 mls @ 15 mls/hr 03/27/20 06:00 03/27/20 12:07 Lr IV 03/27/20 18:00 Infused .Q24H KRISHNA Infusion Lactated Ringer's 1,000 mls @ 60 mls/hr 03/27/20 06:00 03/27/20 11:02 Lr IV 03/27/20 22:39 Not Given .[id number] KRISHNA Cefazolin Sodium 1,000 mg in 7.5 mls @ 2.5 mls/min 03/27/20 06:00 03/27/20 12:07 Ancef 1000mg IV 03/28/20 05:59 2.5 mls/min PREOP KRISHNA Administration Protocol NPO Date Last Intake of Fluids: 03/26/20 Time Last Intake of Fluids: 04:30 Date Last Intake of Solids: 03/26/20 Time Last Intake of Solids: 23:50 Past Medical History Medical History ADHD Hay fever EXPERIENCES CHANGE OF TASTE DUE MEDICATIONS (CHRONIC ISSUE/STABLE) History of melanoma AND HX SQUAMOUS CELL - REMOVED , HX MOHS/FOLLOWS DERM RECOMMENDED 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 Lichen planus TO LOWER EXTREMITIES- CHRONIC Lung cyst CALCIFIED LUNG CYST, LEFT LUNG - CHRONIC - NO CHANGES Lymphocytic colitis Scoliosis SIGNIFICANT Spinal stenosis Vestibular schwannoma S/P GAMMA KNIFE SURGERY 2019- BELIEVES IMPROVING Past Family History Family History Mother Family history of CREST syndrome Father Family history of diabetes mellitus (DM) Son Family history of diabetes mellitus (DM) Past Surgical History Surgical History History of section History of colonoscopy History of gynecologic surgery ECTOPIC History of left breast biopsy History of neck surgery MILD LIMITATIONS SIDE TO SIDE MOVEMENT MILD LIMITATION WHEN LOOKING DOWN History of oral surgery SEVERAL TEETH REMOVED, ROOT CANAL WITH ANESTHESIA History of surgery GAMMA KNIFE Dorr teeth removed Social History Smoking Status: Former smoker Do You Dip or Chew Tobacco: No Smoking End Date: 30 YR AGO Hx Alcohol Use: Yes Alcohol type: wine and hard liquor alcohol intake frequency: 3 or more drinks per day Hx Substance Use: No substance use type: does not use Substance Use Type Other:: medical, not used Physical Exam Vital Signs Last Vital Signs Temp 36.7 C 03/27/20 11:29 Pulse 67 03/27/20 11:29 Resp 20 03/27/20 11:29 BP 129/94 03/27/20 11:29 Pulse Ox 97 03/27/20 11:29 Testing Laboratory Results 03/04/20 13:32 03/04/20 13:32 PT 10.5 Seconds (9.0-12.0) 03/04/20 13:32 INR 1.0 (0.9-1.1) 03/04/20 13:32 APTT 28.7 Seconds (21.0-31.0) 03/04/20 13:32 Blood Type O Positive 03/04/20 13:32 Antibody Screen NEGATIVE 03/04/20 13:32
--- NOTE | 2020-03-27 13:42 | Fluoroscopy Report ---
FL hip LT 1V CLINICAL HISTORY: LT ANTERIOR TOTAL COMPARISON STUDY: None FLUOROSCOPY TIME: 19 seconds NUMBER OF FLUOROSCOPIC IMAGES: 1 FINDINGS: Image intensifier utilized for a left hip arthroplasty IMPRESSION: Image intensifier utilized for left hip arthroplasty ACT 112: Negative or not required by law. The above report was generated using voice recognition software. It may contain grammatical, syntax or spelling errors. Electronically signed by: yTler Gorman M.D. 03/27/2020 1:41 PM
--- NOTE | 2020-03-27 13:49 | Operative Report ---
PG Post Operative Report Pre & Post Diagnosis Operation Date: 03/27/20 12:30 Pre-Op Diagnosis: Left Hip Degenerative Joint Disease Post-Op Diagnosis: Left Hip Degenerative Joint Disease I identified the patient and participated in the time-out.: Yes Procedure Operation Date: 03/27/20 12:30 Actual Procedures p Left Anterior Total Hip Arthroplasty(Left) - Ovidio Rehman DO Surgeon Ovidio Rehman DO Car Builder Ovidio Hanks PAC Estimated Blood Loss 250 Findings Consistent with Post-Op Diagnosis Specimens Left femoral head Complications none Disposition Disposition: Recovery Room Indications Roxanne is a pleasant 64-year-old female who presented my office with complaints of chronic increasing left hip and groin pain. X-rays and clinical examination were diagnostic for advanced osteoarthritis of the left hip. After failing conservative treatment, she elected proceed with a left anterior total hip arthroplasty. Description of Procedure Implants used I used a Biomet Taperloc total hip arthroplasty system with a size 12 micro Taperloc stem, a 50 mm G7 cup with a 25mm screw, an E1 polyethylene liner, a 36 mm ceramic head with a 0 neck. Roxanne arrived at the hospital for the above procedure. She was seen in the preoperative holding area and the operative extremity was identified and signed. She was given a spinal anesthetic, a preoperative antibiotic, and TXA. She was then taken back to the operating room and laid on the table in the supine position. She was given basic sedation. The operative leg was secured to a Puristst leg positioner. The hip was then prepped and draped in sterile fashion. A timeout was done and the patient and the operative extremity was properly identified. An anterior approach was used. Dissection was taken down through the fascia and the tensor muscle belly was retracted laterally and the rectus was retracted medially. The circumflex vessels were identified and ligated. The capsule was then incised and tagged for later repair. The femoral neck was then cut and the femoral head was removed. The acetabulum was exposed. Time was spent doing a complete circumferential labral release. Sequential reaming of the acetabulum up to a size 49 reamer was done. Final reamings were done under fluoroscopy to ensure appropriate version. A Biomet 50 mm G7 cup was then impacted into place. A single 25 mm screw was placed. The E1 polyethylene liner was then snapped into place. Surrounding soft tissues were then injected with 100 cc of an orthopedic pain control cocktail. The proximal femur was then exposed. Sequential broaching up to a size 12 broach was done. Off that broach a size 36 head with a 0 neck was trialed. The hip was reduced and fluoroscopic images showed anatomic alignment of the implants in acceptable length. The broach was removed. The final size 12 standard offset micro Taperloc stem was then impacted into place. A ceramic 36 mm head with a 0 neck was then impacted onto the stem and the hip was reduced. Final fluoroscopic images showed anatomic alignment of the hip. The capsule was then closed with #1 Vicryl suture. A dilute betadyne lavage was then done for 3 minutes. The joint was then irrigated with normal saline solution. The fascia was closed with #1 PDS suture. Skin was closed with 2-0 Vicryl, iman, and a Silverlon dressing. She was then transferred to a hospital bed and taken to the post anesthesia care unit in stable condition. She tolerated the procedure well. Ovidio Hanks PA-C, was present for the entire procedure. He was critical for patient positioning, prepping, draping, retraction exposure, wound closure and application of sterile dressing. I attest to the content of the Intraoperative Record and any orders documented therein. Any exceptions are noted below.
--- NOTE | 2020-03-27 14:23 | XRay Report ---
XR hip 1V LT w pelvis CLINICAL HISTORY: Postoperative evaluation. COMPARISON: Left hip radiographs September 16, 2019. FINDINGS: Alignment of the total left hip arthroplasty is anatomic. There is no periprosthetic fract ure or unexpected radiopaque foreign body. Acetabular screw is noted as well as skin iman. IMPRESSION: Expected findings following total left hip arthroplasty. ACT 112: Negative or not required by law. Electronically signed by: Darius Witt M.D. 03/27/2020 2:22 PM
--- NOTE | 2020-03-27 15:17 | Anesthesiology Progress Note ---
Date of Service March 27, 2020 Anesthesia Post Procedure Vital Signs Vital Signs: Temp Pulse Pulse Resp BP Pulse Ox 03/27/20 15:05 59 L 12 114/72 94 03/27/20 14:55 59 L 12 104/63 94 03/27/20 14:45 37.0 C 63 12 106/62 97 03/27/20 14:35 66 12 109/65 100 03/27/20 14:25 61 12 111/54 L 100 03/27/20 14:15 71 14 120/64 100 03/27/20 14:05 36.8 C 70 12 121/70 100 03/27/20 11:29 36.7 C 67 20 129/94 97 Pain Intensity Left Hip: Pain Intensity: 8 Transfer of Care Handoff Completed per policy Notes Mental Status: alert / awake / arousable and participated in evaluation Patient Amnestic to Procedure: Yes Nausea / Vomiting: adequately controlled Pain: adequately controlled Airway Patency, RR, SpO2: stable & adequate BP & HR: stable & adequate Hydration State: stable & adequate Anesthetic Complications: no major complications apparent
[2020-03-27] MEDS ORDERED: MAGNESIUM HYDROXIDE SUSP 30 ML UDC PO PRN (15:35)
[2020-03-27] MEDS ORDERED: SODIUM CHLORIDE 0.9% 1000ML 1,000 ML IV SCH (15:35)
[2020-03-27] MEDS ORDERED: METAXALONE 800 MG TABLET PO PRN (15:35)
[2020-03-27] MEDS ORDERED: DIPHENOXYLATE/ATROPINE 2.5/0.025MG TAB PO PRN (15:35)
[2020-03-27] MEDS ORDERED: METOCLOPRAMIDE HCL INJ 5 MG/ML 2 ML VIAL IV PRN (15:35)
[2020-03-27] MEDS ORDERED: ONDANSETRON INJ 2 MG/ML 2 ML VIAL IV PRN (15:35)
[2020-03-27] MEDS ORDERED: LORazepam 1 MG TAB PO PRN (15:35)
[2020-03-27] MEDS ORDERED: HYDROmorphone INJ 0.5 MG/0.5 ML SYR IV PRN (15:35)
[2020-03-27] MEDS ORDERED: bisacodyL 10 MG SUPP PR PRN (15:35)
[2020-03-27] MEDS ORDERED: MECLIZINE HCL 25 MG TAB PO PRN (15:35)
[2020-03-27] MEDS ORDERED: NALOXONE HCL 0.4 MG/1 ML VIAL/CARP IV PRN (15:35)
[2020-03-27] MEDS: AMPHETAMINE ASP/SULF/DEXTRAMPH 10 MG TAB PO SCH ×2 (17:36→21:08)
[2020-03-27] MEDS: OXYCODONE HCL IR 5 MG TAB (IMMEDIATE RELEASE) PO PRN (17:42)
[2020-03-27] MEDS: GABAPENTIN 300 MG CAP PO SCH ×2 (17:43→21:13)
[2020-03-27] MEDS: KETOROLAC 30 MG/ML VIAL IV SCH ×2 (17:44→23:39)
[2020-03-27] MEDS ORDERED: SENNA 8.6 MG TAB PO SCH (21:00)
[2020-03-27] MEDS: CEFAZOLIN 2000MG 2,000 MG/15 ML SYR IV SCH (21:06)
[2020-03-27] MEDS: METOPROLOL TARTRATE 25 MG TAB PO SCH (21:08)
[2020-03-27] MEDS: ACETAMINOPHEN 500 MG TAB PO SCH (21:10)
[2020-03-27] MEDS: DOCUSATE SODIUM 100 MG CAP PO SCH (21:10)
[2020-03-27] MEDS: ASPIRIN 81 MG ECTAB PO SCH (21:11)
[2020-03-28] MEDS: OXYCODONE HCL IR 5 MG TAB (IMMEDIATE RELEASE) PO PRN ×2 (01:09→10:29)
[2020-03-28] MEDS: CEFAZOLIN 2000MG 2,000 MG/15 ML SYR IV SCH (03:10)
[2020-03-28 06:03] LABS: Eosinophils # (auto) 0.01 K/uL (0-0.5); Eosinophils % (auto) 0.1 %; Hematocrit (blood only) 29.9 % (37-47); Hemoglobin 10.1 g/dL (12.0-16.0); Immature Granulocytes # (auto) 0.02 K/uL (0.00-0.02); Immature Granulocytes % (auto) 0.2 %; Lymphocytes # (auto) 0.68 K/uL (1.2-3.4); Lymphocytes % (auto) 7.5 %; Mean Corpuscular Hgb Conc 33.8 g/dL (32-36); Mean Corpuscular Volume 91.7 fL (80-100); Mean Platelet Volume 8.7 fL (7.4-10.4); Monocytes # (auto) 0.77 K/uL (0.11-0.59); Monocytes % (auto) 8.5 %; Neutrophils # (auto) 7.53 K/uL (1.4-6.5); Neutrophils % (auto) 83.7 %; Platelet Count 229 K/uL (130-400); RDW Standard Deviation 43.6 fL (36.4-46.3); Red Blood Count 3.26 M/uL (4.2-5.4); White Blood Count 9.01 K/uL (4.8-10.8)
[2020-03-28] MEDS: ACETAMINOPHEN 500 MG TAB PO SCH (06:11)
[2020-03-28] MEDS: KETOROLAC 30 MG/ML VIAL IV SCH (06:12)
[2020-03-28 06:37] LABS: BUN Creatinine Ratio 27.1 (10-20); Calcium 8.1 mg/dl (8.5-10.1); Creatinine Clr Calc Pharmacy 107.5 ml/min; Est GFR (African American) 118.6; Est GFR (Non-African American) 102.3; Potassium 4.3 mmol/L (3.5-5.1)
--- NOTE | 2020-03-28 07:28 | Orthopedic Progress Note ---
Date of Service March 28, 2020 Assessment & Plan (1) Status post total replacement of left hip: Overall she is doing very well. She is not having much pain in the left hip. She will be seen by physical therapy this morning for ambulation and range of motion exercises. She is on aspirin for DVT prophylaxis. She can be discharged home later today. She will follow-up with orthopedics in 2 weeks. Present on Admission?: Yes Kaylene Oliveira was seen and examined at bedside this morning. Overall she is doing very well. She is not having much pain in the left hip. She has been up and ambulating to the bathroom. She has no complaints. Physical Exam Musculoskeletal: On physical examination of the left hip, the Cheryl palacios is clean and dry. Her leg lengths are equal. She has active dorsiflexion and plantarflexion of her left ankle. Results & Data ([facility]) Vital Signs (Past 12 Hours) Vital Signs Temp Pulse Resp BP Pulse Ox 03/28/20 07:16 36.5 C 65 16 126/80 93 03/28/20 03:01 36.5 C 65 16 122/76 94 03/27/20 23:22 37.0 C 62 16 123/72 92 03/27/20 21:15 36.5 C 66 18 140/85 93 Laboratory Results H & H 03/04/20 03/28/20 Range/Units 13:32 05:29 Hgb 12.0 10.1 L (12.0-16.0) g/dL Hct 36.5 L 29.9 L (37-47) % Coagulation 03/04/20 Range/Units 13:32 INR 1.0 (0.9-1.1) Diagnostic Findings Postoperative x-rays of the left hip show the prosthesis to be in anatomic alignment without any evidence of fracture, dislocation, or loosening. PG Care Time/CCT Total # of Minutes Spent Total Time Spent with Patient: Total time spent is greater than 50% in coordination of care (as documented) at patient's floor/unit and/or counseling patient: Coding Level of Care Code None Diagnoses Status post total replacement of left hip Z96.642
--- NOTE | 2020-03-28 07:29 | Discharge Summary ---
Date of Service March 28, 2020 Admission HPI Per Admitting Provider Roxanne is a pleasant 64-year-old female who is been dealing with chronic increasing left hip and groin pain. X-rays and clinical examination have been diagnostic for advanced osteoarthritis of the left hip. After failing conservative treatment, she has elected proceed with a left total hip arthroplasty. She also has degenerative scoliosis. She has been followed by a neurosurgeon at [place]. He wrote me a letter in agreement with a hip replacement surgery. He also asked that I keep her leg lengths are equal as they do not cause any further progression of scoliosis. Principal Diagnosis Left hip replacement Discharge Data Allergies Allergy/AdvReac Type Severity Reaction Status Date / Time baclofen Allergy Unknown Hypotension Verified 03/27/20 11:05 titanium AdvReac Unknown "AUTO Verified 03/27/20 11:05 IMMUNE" REACTION , LICHEN PLANUS Consultations 03/28/20 08:00 Consult Case Management - Discharge Planning Routine Procedures Performed Operation Date: 03/27/20 12:30 Actual Procedures p Left Anterior Total Hip Arthroplasty(Left) - Ovidio Rehman DO Ordered Studies 03/27/20 12:30 FL fluoroscopy <1hr Routine FL hip LT 1V Routine Hospital Course (1) Status post total replacement of left hip: On March 27, 2020 Tj arrived at [facility] and underwent a left hip replacement without complication. She had a general anesthetic. Pos toperatively she was started on aspirin for DVT prophylaxis and transferred to the general orthopedic floors. Her hospital course was uneventful. On postop day #1 her H&H was stable and her pain was well controlled. She was able to participate well with physical therapy doing ambulation and range of motion exercises. She was then discharged home. She will follow-up with orthopedics in 2 weeks. Total Time Total Time Spent Total Time Spent (In Minutes): 20 Discharge Plan Discharge Items Patient Disposition: Home - Home Health Services Reason For Visit: Left Hip Degenerative Joint Disease Discharge Diagnosis: Left hip replacement Activity: As commented below Non-emergency contact: Surgeon Call non-emergency contact if: your wound has increased redness and your wound has increased drainage Follow-up/Referrals: Rasta Blanco DO [Primary Care Provider] - Diet: Regular Addtl Attending Provider Instructions: Activity and Therapy Recommendations: * If you are using [facility] then therapy will be provided at your home until they feel you have accomplished all of your goals. * If you are using [facility] then Physical Therapy will be provided until they feel you are ready to start Outpatient Physical Therapy. * If you are not using home therapy then Outpatient Physical Therapy should start about 3-5 days from your day of surgery. Therapy will last about 6-10 weeks * You were shown a series of exercises in the hospital. Do these exercises three times each day including the exercises you were shown in physical therapy. * Get up and walk several times each day.~ For the first four weeks, try not to stand or walk for more than one hour at a time. If you do stand or walk for more than one hour, you will not hurt anything, but your leg will likely swell.~~ * As you feel comfortable, you may change from the walker or crutches to a cane and~then to independent walking. Medications: * Narcotic You will likely be sent home from the hospital with a prescription for the narcotic pain medication that worked best throughout your stay. * Aspirin Most patients will be required to take Aspirin 81mg twice a day for 6 weeks after surgery. This is obtained [id number] and a prescription is not necessary. * Other medications may be prescribed for specific circumstances. If you have any questions, please call the office at . * Resume previous home medications unless otherwise instructed TEDs/Elastic Stockings: The white elastic stockings help limit swelling and prevent blood clots from forming in your legs. The more you wear them, the more they work. Wear them for six weeks. Dressing Care: Leave the Silverlon dressing in place for 7 days. After 7 days you may remove the dressing. If the incision is not draining then you may leave the iman open to air. If there is a little bit of drainage or if the iman are getting stuck on your clothing then cover the incision with a dry dressing. The iman will be removed at your 2 week follow-up appointment. Showering: You may shower with the Silverlon dressing in place. Let the shower spray hit the other shoulder. You can pat the plastic dry. If the dressing becomes wet underneath the plastic then simply remove the dressing. Keep the incision dry until you are 7 days out from the day of surgery. At that time you can shower with the iman exposed. Let the soapy shower water run over the iman and pat them dry. Do not scrub or soak the incision. Things To Watch For: * Drainage from the incision site that occurs more than one week after your surgery. * Increased redness at the incision site. * Fever above 102 degrees Fahrenheit. * Unusual chest pain or shortness of breath. * Call [facility] at with any of the above problems Follow-Up Visit: Follow-up with Dr. Rehman's PA (Ovidio Hanks) 2-3 weeks after your day of surgery. He will remove your iman and answer any questions. If you have any additional questions or concerns, Dr Rehman is usually in the office at the same time and will be available An appointment was probably scheduled when you signed-up for surgery in the office. If you have any questions call Office Instructions: More detailed instructions as well as Frequently Asked Questions were provided in a folder by our office when you signed-up for surgery. Please review these instructions when you get home. If you have any further questions or concerns, please feel free to call the office at [phone] Pending Studies at Discharge: No Stand-Alone Forms: [facility] SafetySkills, Smoking Cessation Medications and DC Order Prescriptions: New oxycodone 5 mg Tablet 5 mg PO Q4H PRN (Reason: pain) Qty: 30 RF: 0 aspirin 81 mg Tablet,Delayed Release (Dr/Ec) 81 mg PO BID 42 Days Qty: 0 RF: 0 Continued diphenoxylate-atropine [Lomotil] 2.5-0.025 mg tablet 1 tab PO BID PRN (Reason: Diarrhea) RF: 0 budesonide 3 mg capsule,delayed,extend.release 6 mg PO QAM RF: 0 multivitamin [Multiple Vitamins] Tablet 1 tab PO DAILY RF: 0 dextroamphetamine-amphetamine [Adderall] 10 mg tablet 10 mg PO TID RF: 0 gabapentin 300 mg capsule 900 mg PO TID RF: 0 lorazepam 1 mg tablet 1 mg PO DAILY PRN (Reason: Anxiety) RF: 0 vitamin B complex Capsule 1 cap PO DAILY RF: 0 Zinc-15 66 mg Tablet 66 mg PO DIRECTED RF: 0 cholecalciferol (vitamin D3) [Vitamin D3] 1,000 unit Capsule 1,000 unit PO DAILY RF: 0 metaxalone 800 mg tablet 800 mg PO BID PRN (Reason: Muscle Spasm) RF: 0 magnesium oxide 400 mg magnesium Tablet 400 mg PO DIRECTED RF: 0 celecoxib [Celebrex] 100 mg Capsule 100 mg PO DIRECTED RF: 0 duloxetine [Cymbalta] 60 mg Capsule,Delayed Release(Dr/Ec) 60 mg PO QAM RF: 0 meclizine 25 mg tablet 25 mg PO TID PRN (Reason: Dizziness) RF: 0 pantoprazole 40 mg Tablet,Delayed Release (Dr/Ec) 40 mg PO QAM Qty: 30 RF: 1 metoprolol tartrate 25 mg Tablet 12.5 mg PO BID Qty: 60 RF: 5 Discontinued hydrocodone-acetaminophen 10-325 mg tablet 1 - 2 tab PO BID PRN (Reason: Pain) RF: 0 Discharge Orders: Discharge Order (Routine); Ordered 03/28/20 Ordered By: Ovidio Rehman Admission Data Admit Date/Time: 03/27/20 14:01 Attending Provider: Ovidio Rehman Admit Provider: Ovidio Rehman Primary Care Provider: Rasta Blanco Coding Level of Care Code D/C Day Management <30 mins Diagnoses Status post total replacement of left hip Z96.642
[2020-03-28] MEDS ORDERED: dexAMETHasone 4 MG TAB PO SCH (08:00)
[2020-03-28] MEDS: METOPROLOL TARTRATE 25 MG TAB PO SCH (08:44)
[2020-03-28] MEDS: DOCUSATE SODIUM 100 MG CAP PO SCH (08:46)
[2020-03-28] MEDS: ASPIRIN 81 MG ECTAB PO SCH (08:46)
[2020-03-28] MEDS: GABAPENTIN 300 MG CAP PO SCH (08:49)
[2020-03-28] MEDS: AMPHETAMINE ASP/SULF/DEXTRAMPH 10 MG TAB PO SCH (08:52)
[2020-03-28] MEDS ORDERED: PANTOprazole 40 MG TAB PO SCH (09:00)
[2020-03-28] MEDS ORDERED: MULTIVITAMIN TAB PO SCH (09:00)
[2020-03-28] MEDS ORDERED: BUDESONIDE EC 3 MG CAP PO SCH (09:00)
[2020-03-28] MEDS ORDERED: DULOXETINE HCL 60 MG CAP PO SCH (09:00)
== END 2020-03-28 10:55 | disposition home health service (06) ==
LOC: ASU 10:40 → 3E 10:40